=== PATIENT | female | born 1955 | race Two or more races ===

== ENCOUNTER 2017-04-27 12:34 | Day surgery (SDC) | payer OTHER ==
[2017-04-27 13:21] VITALS: BP 118/69; PULSE 61; RESP 20; O2SAT 99
[2017-04-27] MEDS ORDERED: GLIP10TA6 PO (13:29)
[2017-04-27] MEDS ORDERED: GABA300C5 PO (13:29)
[2017-04-27] MEDS ORDERED: NOVOLOGP2 SQ (13:29)
[2017-04-27] MEDS ORDERED: NOVOLOGSS (13:29)
[2017-04-27] MEDS ORDERED: HYDR12.57 PO (13:29)
[2017-04-27] MEDS ORDERED: METF1000 PO (13:29)
[2017-04-27] MEDS ORDERED: LISI-515 PO (13:29)
[2017-04-27] MEDS ORDERED: ACET300T49 PO (13:29)
--- NOTE | 2017-04-27 15:24 | RADRPT ---
EXAM DATE/TIME: 04/27/2017 14:12 [facility] COMPARISON: No previous studies available for comparison. INDICATIONS : Patient presents with ear infection in need of PICC for antibiotics. MEDICAL HISTORY : Malignant Otitis externa right ear DM High cholesterol HTN Hearing loss SURGICAL HISTORY : RT ear surgery C Section ENCOUNTER: Initial ACUITY: 3 weeks PAIN SCORE: 0/10 FLUORO TIME: .23 minutes IMAGE SERIES: 1 ACCESS: Right basilic vein DEVICE(S): 1.) 4 Hebrew single lumen 35 cm Power PICC PROCEDURE : 1. Ultrasound guidance for venous catheterization. 2. Fluoroscopic guidance. 3. Ultrasound & fluoroscopic guided central venous Power PICC line placement. The risks, benefits and alternatives to the procedure were explained and verbal and written consent w as obtained. The site was prepped in sterile fashion. Full sterile technique was used, including ca p, mask, sterile gloves and gown and a large sterile sheet. Hand hygiene and 2% chlorhexidine prep w as utilized per protocol for cutaneous antisepsis with appropriate dry time for site. Sterile gel a nd sterile probe cover were utilized for ultrasound guidance. The skin and subcutaneous tissues wer e infiltrated with local anesthetic solution. Under direct ultrasound guidance, a suitable vein was accessed and a measuring guidewire was introduc ed and positioned in the central venous system. The ultrasound images depicting access guidance were saved and stored to PACS for permanent record. A Power Injectable PICC line was cut to prescribed length and introduced, positioned with tip at the cavoatrial junction level. The line was flushed and secured per protocol. CONCLUSION: 1. Uncomplicated central venous Power PICC line placement. 2. The PICC line can be used immediately. Robe Auguste MD on April 27, 2017 at 15:21 Board Certified Radiologist. This report was verified electronically.
== END 2017-04-27 14:30 | disposition home or self-care (01) ==
LOC: HROP 12:34 → HRIP 12:35 → HROP 14:30
PROVIDERS: ATTEND Internal Medicine
DX: H60.21 Malignant otitis externa, right ear (principal); E11.9 Type 2 diabetes mellitus without complications; E78.00 Pure hypercholesterolemia, unspecified; I10 Essential (primary) hypertension; Z79.4 Long term (current) use of insulin
CPT/HCPCS: 36569; 76937; 77001; C1751; J1642

== ENCOUNTER 2017-05-08 18:31 | Inpatient (IN) | payer OTHER ==
[~2017-05-08] VITALS: Ht 149.9 cm; Wt 79.5 kg
[~2017-05-08 18:31] MED LIST: ACET300T49 PO; GABA300C5 PO; GLIP10TA6 PO; HYDR12.57 PO; LISI-515 PO; METF1000 PO; NOVOLOGP2 SQ; NOVOLOGSS
[2017-05-08 18:42] VITALS: BP 149/72; PULSE 92; RESP 20; TEMP 98.4; O2SAT 98
[2017-05-08 20:50] LABS: AUTOMATED NEUTROPHIL # 8.1 TH/MM3 (1.8-7.7); BASOPHIL # 0.1 TH/MM3 (0-0.2); BASOPHIL % 0.7 % (0.0-2.0); EOSINOPHIL # 0.1 TH/MM3 (0-0.4); EOSINOPHIL % 0.4 % (0.0-4.0); HEMATOCRIT 34.5 % (35.0-46.0); HEMOGLOBIN 11.9 GM/DL (11.6-15.3); LYMPH % 34.1 % (9.0-44.0); LYMPHOCYTE # 4.9 TH/MM3 (1.0-4.8); MEAN CELL VOLUME 89.7 FL (80.0-100.0); MEAN CORPUSCULAR HEMOGLOBIN 30.8 PG (27.0-34.0); MEAN CORPUSCULAR HGB CONC 34.4 % (32.0-36.0); MEAN PLATELET VOLUME 7.7 FL (7.0-11.0); MONO % 8.2 % (0.0-8.0); MONOCYTE # 1.2 TH/MM3 (0-0.9); NEUT % 56.6 % (16.0-70.0); PLATELET COUNT 410 TH/MM3 (150-450); RED BLOOD COUNT 3.85 MIL/MM3 (4.00-5.30); RED CELL DISTRIBUTION WIDTH 12.7 % (11.6-17.2); WHITE BLOOD COUNT 14.4 TH/MM3 (4.0-11.0)
[2017-05-08 21:08] LABS: INTERNATIONAL NORMALIZED RATIO 1.1 RATIO; PROTHROMBIN TIME - PATIENT 10.7 SEC (9.8-11.6)
[2017-05-08 21:10] LABS: ALBUMIN 2.8 GM/DL (3.4-5.0); AST (GOT) 9 U/L (15-37); BICARBONATE 25.4 MEQ/L (21.0-32.0); BLOOD UREA NITROGEN 17 MG/DL (7-18); CALCIUM 9.4 MG/DL (8.5-10.1); CHLORIDE 99 MEQ/L (98-107); CREATININE 0.67 MG/DL (0.50-1.00); GLOMERULAR FILTRATION RATE 90 ML/MIN (>89); GLUCOSE,RANDOM 210 MG/DL (74-106); SODIUM (NA) 133 MEQ/L (136-145)
[2017-05-08 21:11] LABS: ALT (GPT) 13 U/L (10-53)
[2017-05-08 21:14] LABS: ALKALINE PHOSPHATASE 102 U/L (45-117); TOTAL BILIRUBIN ADULT 0.4 MG/DL (0.2-1.0); TOTAL PROTEIN 8.6 GM/DL (6.4-8.2)
[2017-05-08 21:33] VITALS: BP 140/66; PULSE 83; RESP 18; TEMP 98.5; O2SAT 100
[2017-05-08] MEDS ORDERED: CIPR500T2 PO (21:41)
[2017-05-08] MEDS ORDERED: Insulin SQ (21:41)
--- NOTE | 2017-05-08 21:49 | PD ---
HPI Chief Complaint: Skin Problem Time Seen by Provider: 21:29 Travel History International Travel<30 days: No Contact w/Intl Traveler<30days: No Traveled to known affect area: No History of Present Illness HPI This is a 61-year-old Yemeni-speaking with history of diabetes, hypertension, hyperlipidemia, who presents with family member for evaluation of right ear infection. Initially she started having pain in her right ear 2 months ago. She was referred by her primary care physician, Dr. Chacon in [place], to an vp purchasing in [facility]. she was referred to infectious disease specialist in [place], Dr. Juan Pablo Willis, for further treatment of her infection. She had a PICC line placed 1.5 weeks ago and reportedly cefepime 2 g bid for 3 weeks were ordered to be administered at home through the PICC line. Unfortunately no nurses have come to her home for administration of the antibiotics secondary to insurance issues and she called Dr. Lopez office today and was referred here for further evaluation and treatment of this issue. She denies fevers, cough, congestion, sore throat, nausea, vomiting, abdominal pain. She has had bilateral lower extremity edema for the past few days as well which is somewhat painful when walking. No history of CHF. No other complaints at this time. [facility] Past Medical History Diminished Hearing: No Tetanus Vaccination: Unknown Influenza Vaccination: No Past Surgical History Other Surgery: Yes (R ear surgery x 2 week ago) Social History Alcohol Use: No Tobacco Use: No Substance Use: No Allergies-Medications (Allergen,Severity, Reaction): Coded Allergies: No Known Allergies (Unverified , 04/27/17) Reported Meds & Prescriptions Reported Meds & Active Scripts Active Reported [Insulin] 5 Units SQ HS Ciprofloxacin (Ciprofloxacin HCl) 500 Mg Tab 500 Mg PO DAILY Metformin (Metformin HCl) 1,000 Mg Tab 1,000 Mg PO DAILY With a meal Lisinopril 20 Mg Tab 20 Mg PO DAILY Hydrochlorothiazide 12.5 Mg Cap 12.5 Mg PO DAILY Glipizide 10 Mg Tab 10 Mg PO DAILY Take 30 minutes before a meal Review of Systems Except as stated in HPI: all other systems reviewed are Neg Physical Exam Narrative GENERAL: Well-developed well-nourished female no acute distress SKIN: Warm and dry. HEAD: Atraumatic. Normocephalic. EYES: Pupils equal and round. No scleral icterus. No injection or drainage. ENT: No nasal bleeding or discharge. Mucous membranes pink and moist. The right external ear canal is edematous with foul-smelling purulent drainage. Tenderness to palpation to the right external ear. NECK: Trachea midline. No JVD. CARDIOVASCULAR: Regular rate and rhythm. No murmur appreciated. RESPIRATORY: No accessory muscle use. Clear to auscultation. Breath sounds equal bilaterally. GASTROINTESTINAL: Abdomen soft, non-tender, nondistended. Hepatic and splenic margins not palpable. MUSCULOSKELETAL: No obvious deformities. There is 1+ lower extremity tibial/ pedal edema bilaterally. There are no erythematous changes. Distal pulses are intact. NEUROLOGICAL: Awake and alert. No obvious cranial nerve deficits. Motor grossly within normal limits. Normal speech. Data Data Last Documented VS Vital Signs Date Time Temp Pulse Resp B/P (MAP) Pulse Ox O2 Delivery O2 Flow Rate FiO2 05/08/17 21:33 98.5 83 18 140/66 (90) 100 Room Air Orders Orders Complete Blood Count With Diff (05/08/17 18:46) Comprehensive Metabolic Panel (05/08/17 18:46) Prothrombin Time / Inr (Pt) (05/08/17 18:46) Act Partial Throm Time (Ptt) (05/08/17 18:46) Lactic Acid Sepsis Protocol (05/08/17 18:46) Us Leg Venous Doppler Bilat (05/08/17 21:40) Wound Culture And Gram Stain (05/08/17 21:41) Cefepime Inj (Maxipime Inj) (05/08/17 22:30) Admit Order (Ed Use Only) (05/08/17 23:08) Labs Laboratory Tests Test 05/08/17 20:15 05/08/17 20:17 Lactic Acid Level 0.9 mmol/L White Blood Count 14.4 TH/MM3 Red Blood Count 3.85 MIL/MM3 Hemoglobin 11.9 GM/DL Hematocrit 34.5 % Mean Corpuscular Volume 89.7 FL Mean Corpuscular Hemoglobin 30.8 PG Mean Corpuscular Hemoglobin Concent 34.4 % Red Cell Distribution Width 12.7 % Platelet Count 410 TH/MM3 Mean Platelet Volume 7.7 FL Neutrophils (%) (Auto) 56.6 % Lymphocytes (%) (Auto) 34.1 % Monocytes (%) (Auto) 8.2 % Eosinophils (%) (Auto) 0.4 % Basophils (%) (Auto) 0.7 % Neutrophils # (Auto) 8.1 TH/MM3 Lymphocytes # (Auto) 4.9 TH/MM3 Monocytes # (Auto) 1.2 TH/MM3 Eosinophils # (Auto) 0.1 TH/MM3 Basophils # (Auto) 0.1 TH/MM3 CBC Comment DIFF FINAL Differential Comment Prothrombin Time 10.7 SEC Prothromb Time International Ratio 1.1 RATIO Activated Partial Thromboplast Time 26.9 SEC Blood Urea Nitrogen 17 MG/DL Creatinine 0.67 MG/DL Random Glucose 210 MG/DL Total Protein 8.6 GM/DL Albumin 2.8 GM/DL Calcium Level 9.4 MG/DL Alkaline Phosphatase 102 U/L Aspartate Amino Transf (AST/SGOT) 9 U/L Alanine Aminotransferase (ALT/SGPT) 13 U/L Total Bilirubin 0.4 MG/DL Sodium Level 133 MEQ/L Potassium Level 4.1 MEQ/L Chloride Level 99 MEQ/L Carbon Dioxide Level 25.4 MEQ/L Anion Gap 9 MEQ/L Estimat Glomerular Filtration Rate 90 ML/MIN MDM Medical Decision Making Medical Screen Exam Complete: Yes Emergency Medical Condition: Yes Medical Record Reviewed: Yes Differential Diagnosis Malignant otitis externa, medication nonadministration, osteomyelitis, mastoiditis Narrative Course 61-year-old female presents after being unable to obtain outpatient IV antibiotic therapy through a recently placed PICC line for treatment of a right ear infection. Examination is concerning for malignant otitis externa. The patient be given IV cefepime. Lab work was obtained in triage revealing WBC count of 14.4, glucose 210, sodium 133. A culture was obtained from the ear. A page was placed for the patient's infectious disease specialist Dr. Willis. Several pages were made to the patient's infectious disease specialist with no callback. At this point time the plan will be to admit her for IV antibiotic therapy. Diagnosis Primary Impression: Malignant otitis externa Additional Impression: Leukocytosis Admitting Information Admitting Physician Requests: it Natanael Britton May 08, 2017 21:49
--- NOTE | 2017-05-08 22:13 | RADRPT ---
EXAM DATE/TIME: 05/08/2017 21:47 [facility] COMPARISON: No previous studies available for comparison. INDICATIONS : Bilateral leg swelling. MEDICAL HISTORY : Leg swelling. SURGICAL HISTORY : Right ear surgery. ENCOUNTER: Initial ACUITY: 2 day PAIN SCORE: 3/10 LOCATION: Bilateral legs. TECHNIQUE: Venous ultrasound of the left and right leg was performed from the inguinal ligament to the proximal calf. Real-time, color Doppler and spectral tracing, compression and augmentation techniques were us ed. FINDINGS: RIGHT LEG: There is normal compressibility of the deep venous system from the inguinal region to the proximal ca lf. No echogenic clot is seen in the lumen of the common femoral, femoral, popliteal, and posterior tibial veins. There is a normal response of the venous system to proximal and distal augmentation an d respiration. LEFT LEG: There is normal compressibility of the deep venous system from the inguinal region to the proximal ca lf. No echogenic clot is seen in the lumen of the common femoral, femoral, popliteal, and posterior tibial veins. There is a normal response of the venous system to proximal and distal augmentation an d respiration. CONCLUSION: Normal examination. Fabian Rosario MD on May 08, 2017 at 22:11 Board Certified Radiologist. This report was verified electronically.
[2017-05-08] MEDS ORDERED: CEFEPIME INJ 2,000 MG in SODIUM CHLORIDE 0.9% INJ 100 ML IV ONE (22:30)
[2017-05-08 23:41] VITALS: BP 147/68; PULSE 78; RESP 16; TEMP 98.7; O2SAT 98
[2017-05-08] MEDS ORDERED: BISACODYL 10 MG SUPP RECTAL PRN (23:45)
[2017-05-08] MEDS ORDERED: DEXTROSE 50% IN WATER 50 ML VIAL(D50) IV PUSH PRN (23:45)
[2017-05-08] MEDS ORDERED: GLUCAGON 1 MG/ML VIAL OTHER PRN (23:45)
[2017-05-08] MEDS ORDERED: ACETAMINOPHEN 325 MG TAB PO PRN (23:45)
[2017-05-08] MEDS ORDERED: ONDANSETRON HCL 4 MG/2 ML VIAL IVP PRN (23:45)
[2017-05-08] MEDS ORDERED: MAGNESIUM HYDROXIDE SUSP 30 ML CUP PO PRN (23:45)
[2017-05-08] MEDS ORDERED: SENNOSIDES 8.6 MG TAB PO PRN (23:45)
[2017-05-08] MEDS ORDERED: NALOXONE HCL 0.4 MG/ML AMP IV PUSH PRN (23:45)
[2017-05-08] MEDS ORDERED: LACTULOSE SYRUP 20 GM/30 ML CUP PO PRN (23:45)
[2017-05-08] MEDS ORDERED: SODIUM CHLORIDE 0.9% FLUSH 10 ML FLUSH IV FLUSH PRN (23:45)
[2017-05-09] VITALS (7 sets, daily range): BP systolic 112–144; BP diastolic 5–91; PULSE 61–92; RESP 16–20; TEMP 97.6–99.2; O2SAT 95–100
[2017-05-09] MEDS: HEPARIN SODIUM - SQ 10,000 UNITS/ML VIAL SQ SCH ×4 (01:11→23:33)
--- NOTE | 2017-05-09 04:47 | HHI.HP ---
HPI Service [facility] Primary Care Physician Unknown Admission Diagnosis Malignant otitis externa, leukocytosis Diagnoses: Travel History International Travel<30 Days: No Contact w/Intl Traveler <30 Da: No Traveled to Known Affected Are: No History of Present Illness 61-year-old Samoan-speaking female with a past medical history of diabetes, hypertension, hyperlipidemia who presents to the emergency department for evaluation of an ear infection. The patient initially started having right ear pain 2 months ago. She was referred by her primary care physician to an ENT physician who then referred her to infectious disease. She had a PICC line placed approximately 9 days ago and was reportedly prescribed cefepime 2 g twice a day for 3 weeks which was to be ordered for home administration through the PICC line. Unfortunately the patient has not received any medication at her home secondary to insurance issues. The patient denies any fever/chills. No nausea/vomiting/abdominal pain. No chest pain or shortness of breath. She has bilateral lower extremity edema for the past few days which is somewhat more painful when walking. She has no history of congestive heart failure. Review of Systems Except as stated in HPI: all other systems reviewed are Neg Past Family Social History Past Medical History Diabetes Hypertension Hyperlipidemia Past Surgical History Right ear surgery approximately 2 weeks ago Reported Medications Reported Meds & Active Scripts Active Reported [Insulin] 5 Units SQ HS Ciprofloxacin (Ciprofloxacin HCl) 500 Mg Tab 500 Mg PO DAILY Metformin (Metformin HCl) 1,000 Mg Tab 1,000 Mg PO DAILY With a meal Lisinopril 20 Mg Tab 20 Mg PO DAILY Hydrochlorothiazide 12.5 Mg Cap 12.5 Mg PO DAILY Glipizide 10 Mg Tab 10 Mg PO DAILY Take 30 minutes before a meal Allergies: Coded Allergies: No Known Allergies (Unverified , 04/27/17) Family History Negative for CAD/DM Social History Denies alcohol, tobacco and illicit drugs Physical Exam Vital Signs Vital Signs Date Time Temp Pulse Resp B/P (MAP) Pulse Ox O2 Delivery O2 Flow Rate FiO2 05/09/17 01:31 99.2 83 16 144/71 (95) 95 05/09/17 01:30 83 05/08/17 23:41 98.7 78 16 147/68 (94) 98 Room Air 05/08/17 21:33 98.5 83 18 140/66 (90) 100 Room Air 05/08/17 18:42 98.4 92 20 149/72 (97) 98 Physical Exam GENERAL: female lying in bed SKIN: No rashes, ecchymoses or lesions. Cool and dry. HEAD: Atraumatic. Normocephalic. No temporal or scalp tenderness. EYES: Pupils equal round and reactive. Extraocular motions intact. No scleral icterus. No injection or drainage. ENT: Nose without bleeding, purulent drainage or septal hematoma. Throat without erythema, tonsillar hypertrophy or exudate. Uvula midline. Airway patent. Right ear swollen, erythematous and edematous with copious quantities of foul-smelling purulent drainage. NECK: Trachea midline. No JVD or lymphadenopathy. Supple, nontender, no meningeal signs. CARDIOVASCULAR: Regular rate and rhythm without murmurs, gallops, or rubs. RESPIRATORY: Clear to auscultation. Breath sounds equal bilaterally. No wheezes , rales, or rhonchi. GASTROINTESTINAL: Abdomen soft, non-tender, nondistended. No hepato-splenomegaly , or palpable masses. No guarding. MUSCULOSKELETAL: He is pedal edema bilaterally NEUROLOGICAL: Awake and alert. Cranial nerves II through XII intact. Motor and sensory grossly within normal limits. Normal speech. Laboratory Laboratory Tests Test 05/08/17 20:15 05/08/17 20:17 Lactic Acid Level 0.9 White Blood Count 14.4 Red Blood Count 3.85 Hemoglobin 11.9 Hematocrit 34.5 Mean Corpuscular Volume 89.7 Mean Corpuscular Hemoglobin 30.8 Mean Corpuscular Hemoglobin Concent 34.4 Red Cell Distribution Width 12.7 Platelet Count 410 Mean Platelet Volume 7.7 Neutrophils (%) (Auto) 56.6 Lymphocytes (%) (Auto) 34.1 Monocytes (%) (Auto) 8.2 Eosinophils (%) (Auto) 0.4 Basophils (%) (Auto) 0.7 Neutrophils # (Auto) 8.1 Lymphocytes # (Auto) 4.9 Monocytes # (Auto) 1.2 Eosinophils # (Auto) 0.1 Basophils # (Auto) 0.1 CBC Comment DIFF FINAL Differential Comment Prothrombin Time 10.7 Prothromb Time International Ratio 1.1 Activated Partial Thromboplast Time 26.9 Blood Urea Nitrogen 17 Creatinine 0.67 Random Glucose 210 Total Protein 8.6 Albumin 2.8 Calcium Level 9.4 Alkaline Phosphatase 102 Aspartate Amino Transf (AST/SGOT) 9 Alanine Aminotransferase (ALT/SGPT) 13 Total Bilirubin 0.4 Sodium Level 133 Potassium Level 4.1 Chloride Level 99 Carbon Dioxide Level 25.4 Anion Gap 9 Estimat Glomerular Filtration Rate 90 Date/Time Source Procedure Growth Status 05/08/17 21:50 Wound Face Gram Stain Pending Received 05/08/17 21:50 Wound Face Wound Culture Pending Received Result Diagram: 05/08/17201605/08/172016 Caprini VTE Risk Assessment Caprini VTE Risk Assessment: Mod/High Risk (score >= 2) Caprini Risk Assessment Model Point Value = 1 Point Value = 2 Point Value = 3 Point Value = 5 Age 41-60 Minor surgery BMI > 25 kg/m2 Swollen legs Varicose veins or History of unexplained or recurrent spontaneous Oral contraceptives or hormone replacement Sepsis (< 1 month) Serious lung disease, including pneumonia (< 1 month) Abnormal pulmonary function Acute myocardial infarction Congestive heart failure (< 1 month) History of inflammatory bowel disease Medical patient at bed rest Age 61-74 Arthroscopic surgery Major open surgery (> 45 min) Laparoscopic surgery (> 45 min) Malignancy Confined to bed (> 72 hours) Immobilizing plaster cast Central venous access Age >= 75 History of VTE Family history of VTE Factor V Leiden Prothrombin [id number] Lupus anticoagulant Anticardiolipin antibodies Elevated serum homocysteine Heparin-induced thrombocytopenia Other congenital or acquired thrombophilia Stroke (< 1 month) Elective arthroplasty Hip, pelvis, or leg fracture Acute spinal cord injury (< 1 month) Prophylaxis Regimen Total Risk Factor Score Risk Level Prophylaxis Regimen 0-1 Low Early ambulation 2 Moderate Order ONE of the following: *Sequential Compression Device (SCD) *Heparin 5000 units SQ BID 3-4 Higher Order ONE of the following medications: *Heparin 5000 units SQ TID *Enoxaparin/Lovenox 40 mg SQ daily (WT < 150 kg, CrCl > 30 mL/min) *Enoxaparin/Lovenox 30 mg SQ daily (WT < 150 kg, CrCl > 10-29 mL/min) *Enoxaparin/Lovenox 30 mg SQ BID (WT < 150 kg, CrCl > 30 mL/min) AND/OR *Sequential Compression Device (SCD) 5 or more Highest Order ONE of the following medications: *Heparin 5000 units SQ TID (Preferred with Epidurals) *Enoxaparin/Lovenox 40 mg SQ daily (WT < 150 kg, CrCl > 30 mL/min) *Enoxaparin/Lovenox 30 mg SQ daily (WT < 150 kg, CrCl > 10-29 mL/min) *Enoxaparin/Lovenox 30 mg SQ BID (WT < 150 kg, CrCl > 30 mL/min) AND *Sequential Compression Device (SCD) Assessment and Plan Assessment and Plan Assessment/plan: 1. Malignant otitis externa Patient with leukocytosis and tachycardia Wound culture pending Cefepime 2 g twice a day Infectious disease consulted, appreciate recommendations 2. Diabetes mellitus Sliding scale insulin Monitor blood glucose 3. Hypertension/hyperlipidemia Continue home medications FEN Diabetic diet Electrolytes: Monitor and replete when necessary Heparin Physician Certification 2 Midnight Certification Type: Admission for Inpatient Services Order for Inpatient Services The services are ordered in accordance with Medicare regulations or non- Medicare payer requirements, as applicable. In the case of services not specified as inpatient-only, they are appropriately provided as inpatient services in accordance with the 2-midnight benchmark. Estimated LOS (days): 2 2 days is the estimated time the patient will need to remain in the hospital, assuming treatment plan goals are met and no additional complications. Post-Hospital Plan: Not yet determined Nissa Mercado MD May 09, 2017 04:47
[2017-05-09] MEDS ORDERED: SODIUM CHLORIDE 0.9% FLUSH 10 ML FLUSH IV FLUSH SCH (09:00)
[2017-05-09] MEDS ORDERED: DOCUSATE SODIUM 50 MG/SENNA 8.6 MG TAB PO SCH (09:00)
[2017-05-09] MEDS: LISINOPRIL 20 MG TAB PO SCH (09:51)
[2017-05-09] MEDS: HYDROCHLOROTHIAZIDE 12.5 MG CAP PO SCH (09:51)
[2017-05-09] MEDS: INSULIN ASPART SUPPLEMENTAL SCALE SQ SCH ×4 (09:54→21:59)
[2017-05-09] MEDS ORDERED: CEFEPIME INJ 2,000 MG in SODIUM CHLORIDE 0.9% INJ 100 ML IV SCH (10:30)
[2017-05-09 11:55] LABS: AUTOMATED NEUTROPHIL # 6.1 TH/MM3 (1.8-7.7); BASOPHIL % 0.4 % (0.0-2.0); EOSINOPHIL % 0.3 % (0.0-4.0); HEMATOCRIT 32.9 % (35.0-46.0); HEMOGLOBIN 11.3 GM/DL (11.6-15.3); LYMPH % 29.2 % (9.0-44.0); LYMPHOCYTE # 2.9 TH/MM3 (1.0-4.8); MEAN CELL VOLUME 89.5 FL (80.0-100.0); MEAN CORPUSCULAR HEMOGLOBIN 30.9 PG (27.0-34.0); MEAN CORPUSCULAR HGB CONC 34.5 % (32.0-36.0); MEAN PLATELET VOLUME 7.6 FL (7.0-11.0); MONO % 8.6 % (0.0-8.0); MONOCYTE # 0.9 TH/MM3 (0-0.9); NEUT % 61.5 % (16.0-70.0); PLATELET COUNT 380 TH/MM3 (150-450); RED BLOOD COUNT 3.67 MIL/MM3 (4.00-5.30); RED CELL DISTRIBUTION WIDTH 12.4 % (11.6-17.2); WHITE BLOOD COUNT 9.9 TH/MM3 (4.0-11.0)
[2017-05-09 12:19] LABS: BICARBONATE 25.2 MEQ/L (21.0-32.0); CALCIUM 9.1 MG/DL (8.5-10.1); CREATININE 0.69 MG/DL (0.50-1.00)
--- NOTE | 2017-05-09 13:22 | HHI.PR ---
Subjective Remarks 61-year-old Uzbek-speaking female with a past medical history of diabetes, hypertension, hyperlipidemia who presents to the emergency department for evaluation of an ear infection. The patient initially started having right ear pain 2 months ago. She was referred by her primary care physician to an ENT physician who then referred her to infectious disease. She had a PICC line placed approximately 9 days ago and was reportedly prescribed cefepime 2 g twice a day for 3 weeks which was to be ordered for home administration through the PICC line. Unfortunately the patient has not received any medication at her home secondary to insurance issues. The patient denies any fever/chills. No nausea/vomiting/abdominal pain. No chest pain or shortness of breath. She has bilateral lower extremity edema for the past few days which is somewhat more painful when walking. She has no history of congestive heart failure. 4-4 HAD DIFFICULTY GETTING ANTIBIOTICS SET UP STILL HAS RIGHT EAR ISSUES CONSULT CASE MANAGEMENT COMPLAINS OF PAIN IN EAR AND KNEE DW RN AND PT AND CASE MANAGEMENT Objective Vitals Vital Signs Date Time Temp Pulse Resp B/P (MAP) Pulse Ox O2 Delivery O2 Flow Rate FiO2 05/09/17 08:00 98.6 92 20 112/91 (98) 100 05/09/17 04:00 98.4 73 16 127/75 (92) 96 05/09/17 01:31 99.2 83 16 144/71 (95) 95 05/09/17 01:30 83 05/08/17 23:41 98.7 78 16 147/68 (94) 98 Room Air 05/08/17 21:33 98.5 83 18 140/66 (90) 100 Room Air 05/08/17 18:42 98.4 92 20 149/72 (97) 98 I/O 05/08/17 05/08/17 05/08/17 05/09/17 05/09/17 05/09/17 07:00 15:00 23:00 07:00 15:00 23:00 Intake Total 340 ml 100 ml Balance 340 ml 100 ml Intake Oral 240 ml IV Total 100 ml 100 ml # Voids 1 Result Diagram: 05/09/17 1118 05/09/17 1118 Other Results Laboratory Tests Test 05/08/17 20:15 05/08/17 20:17 05/09/17 11:18 Lactic Acid Level 0.9 mmol/L White Blood Count 14.4 TH/MM3 9.9 TH/MM3 Red Blood Count 3.85 MIL/MM3 3.67 MIL/MM3 Hemoglobin 11.9 GM/DL 11.3 GM/DL Hematocrit 34.5 % 32.9 % Mean Corpuscular Volume 89.7 FL 89.5 FL Mean Corpuscular Hemoglobin 30.8 PG 30.9 PG Mean Corpuscular Hemoglobin Concent 34.4 % 34.5 % Red Cell Distribution Width 12.7 % 12.4 % Platelet Count 410 TH/MM3 380 TH/MM3 Mean Platelet Volume 7.7 FL 7.6 FL Neutrophils (%) (Auto) 56.6 % 61.5 % Lymphocytes (%) (Auto) 34.1 % 29.2 % Monocytes (%) (Auto) 8.2 % 8.6 % Eosinophils (%) (Auto) 0.4 % 0.3 % Basophils (%) (Auto) 0.7 % 0.4 % Neutrophils # (Auto) 8.1 TH/MM3 6.1 TH/MM3 Lymphocytes # (Auto) 4.9 TH/MM3 2.9 TH/MM3 Monocytes # (Auto) 1.2 TH/MM3 0.9 TH/MM3 Eosinophils # (Auto) 0.1 TH/MM3 0.0 TH/MM3 Basophils # (Auto) 0.1 TH/MM3 0.0 TH/MM3 CBC Comment DIFF FINAL DIFF FINAL Differential Comment Prothrombin Time 10.7 SEC Prothromb Time International Ratio 1.1 RATIO Activated Partial Thromboplast Time 26.9 SEC Blood Urea Nitrogen 17 MG/DL 14 MG/DL Creatinine 0.67 MG/DL 0.69 MG/DL Random Glucose 210 MG/DL 280 MG/DL Total Protein 8.6 GM/DL Albumin 2.8 GM/DL Calcium Level 9.4 MG/DL 9.1 MG/DL Alkaline Phosphatase 102 U/L Aspartate Amino Transf (AST/SGOT) 9 U/L Alanine Aminotransferase (ALT/SGPT) 13 U/L Total Bilirubin 0.4 MG/DL Sodium Level 133 MEQ/L 133 MEQ/L Potassium Level 4.1 MEQ/L 4.0 MEQ/L Chloride Level 99 MEQ/L 102 MEQ/L Carbon Dioxide Level 25.4 MEQ/L 25.2 MEQ/L Anion Gap 9 MEQ/L 6 MEQ/L Estimat Glomerular Filtration Rate 90 ML/MIN 87 ML/MIN Imaging Last Impressions Lower Extremity Ultrasound 05/08/172139 Signed Impressions: Service Date/Time: Monday, May 08, 2017 21:47 - CONCLUSION: Normal examination. Fabian Rosario MD Objective Remarks GENERAL: SKIN: Warm and dry. HEAD: Atraumatic. Normocephalic. EYES: Pupils equal and round. No scleral icterus. No injection or drainage. ENT: No nasal bleeding or discharge. Mucous membranes pink and moist. NECK: Trachea midline. No JVD. CARDIOVASCULAR: Regular rate and rhythm. RESPIRATORY: No accessory muscle use. Clear to auscultation. Breath sounds equal bilaterally. GASTROINTESTINAL: Abdomen soft, non-tender, nondistended. Hepatic and splenic margins not palpable. MUSCULOSKELETAL: Extremities without clubbing, cyanosis, or edema. No obvious deformities. NEUROLOGICAL: Awake and alert. No obvious cranial nerve deficits. Motor grossly within normal limits. Five out of 5 muscle strength in the arms and legs. Normal speech. PSYCHIATRIC: Appropriate mood and affect; insight and judgment normal. Procedures NONE Medications and IVs Current Medications Cefepime HCl 2000 mg/Sodium Chloride 100 ml @ 200 mls/hr ONCE ONCE IV Last administered on 05/08/17at 22:56; Start 05/08/17 at 22:30; Stop 05/08/17 at 22:59; Status DC Cefepime HCl 2000 mg/Sodium Chloride 100 ml @ 200 mls/hr Q12H IV Last administered on 05/09/17at 11:36; Start 05/09/17 at 10:30 Sodium Chloride (NS Flush) 2 ml UNSCH PRN IV FLUSH FLUSH AFTER USING IV ACCESS ; Start 05/08/17 at 23:45 Sodium Chloride (NS Flush) 2 ml BID IV FLUSH Last administered on 05/09/17at 09: 54; Start 05/09/17 at 09:00 Acetaminophen (Tylenol) 650 mg Q4H PRN PO TEMP > 100.4 Last administered on 05/09at 09:53; Start 05/08/17 at 23:45 Ondansetron HCl (Zofran Inj) 4 mg Q6H PRN IVP NAUSEA OR VOMITING; Start at 23:45 Heparin Sodium (Porcine) (Heparin Inj) 5,000 units Q8H SQ Last administered on 05/09/17at 09:53; Start 05/08/17 at 23:45 Naloxone HCl (Narcan Inj) 0.4 mg UNSCH PRN IV PUSH SEE LABEL COMMENTS; Start at 23:45 Senna/Docusate Sodium (Ayala-Colace) 1 tab BID PO Last administered on 05/09/17at 09:51; Start 05/09/17 at 09:00 Magnesium Hydroxide (Milk Of Magnesia Liq) 30 ml Q12H PRN PO Mild constipation ; Start 05/08/17 at 23:45 Sennosides (Senokot) 17.2 mg Q12H PRN PO Moderate constipation; Start 05/08/17 at 23:45 Bisacodyl (Dulcolax Supp) 10 mg DAILY PRN RECTAL SEVERE CONSITIPATION/ IF NPO ; Start 05/08/17 at 23:45 Lactulose (Lactulose Liq) 30 ml DAILY PRN PO SEVERE CONSITIPATION/ IF PO; Start 05/08/17 at 23:45 Hydrochlorothiazide (Microzide) 12.5 mg DAILY PO Last administered on 05/09/17at 09:51; Start 05/09/17 at 09:00 Lisinopril (Prinivil) 20 mg DAILY PO Last administered on 05/09/17at 09:51; Start 05/09/17 at 09:00 Dextrose (D50w (Vial) Inj) 50 ml UNSCH PRN IV PUSH HYPOGLYCEMIA-SEE COMMENTS; Start 05/08/17 at 23:45 Glucagon (Glucagon Inj) 1 mg UNSCH PRN OTHER HYPOGLYCEMIA-SEE COMMENTS; Start 05/08/17 at 23:45 Insulin Aspart (NovoLOG SUPPLEMENTAL SCALE) 1 ACHS SLIDING SCALE SQ Last administered on 05/09/17at 13:00; Start 05/09/17 at 08:00 A/P Assessment and Plan 1. Malignant otitis externa Patient with leukocytosis and tachycardia Wound culture pending Cefepime 2 g twice a day Infectious disease consulted, appreciate recommendations 2. Diabetes mellitus Sliding scale insulin Monitor blood glucose 3. Hypertension/hyperlipidemia Continue home medications OSTEOARTHRITIS- PAIN CONTROL FEN Diabetic diet Electrolytes: Monitor and replete when necessary Heparin Discharge Planning PENDING IMPROVEMENT Mode Corcoran DO May 09, 2017 13:22
[2017-05-09] MEDS ORDERED: MORPHINE SULFATE 4 MG/ML INJ IV PUSH PRN ×2 (13:30)
[2017-05-09] MEDS ORDERED: LACTULOSE SYRUP 20 GM/30 ML CUP PO PRN (13:30)
[2017-05-09] MEDS ORDERED: SODIUM CHLORIDE 0.9% FLUSH 10 ML FLUSH IV FLUSH PRN (13:30)
[2017-05-09] MEDS ORDERED: BISACODYL 10 MG SUPP RECTAL PRN (13:30)
[2017-05-09] MEDS ORDERED: SENNOSIDES 8.6 MG TAB PO PRN (13:30)
[2017-05-09] MEDS ORDERED: TEMAZEPAM 15 MG CAP PO PRN (13:30)
[2017-05-09] MEDS ORDERED: ONDANSETRON HCL 4 MG/2 ML VIAL IVP PRN (13:30)
[2017-05-09] MEDS ORDERED: NALOXONE HCL 0.4 MG/ML AMP IV PUSH PRN (13:30)
[2017-05-09] MEDS ORDERED: ACETAMINOPHEN 325 MG TAB PO PRN (13:30)
[2017-05-09] MEDS ORDERED: oxyCODONE/ACETAMINOPHEN 5 MG/325 MG TAB PO PRN (13:30)
[2017-05-09] MEDS ORDERED: MAGNESIUM HYDROXIDE SUSP 30 ML CUP PO PRN (13:30)
[2017-05-09] MEDS ORDERED: METOCLOPRAMIDE HCL 10 MG/2 ML VIAL IV PUSH PRN (13:30)
[2017-05-09] MEDS ORDERED: MORPHINE SULFATE 2 MG/ML SYRINGE IV PUSH PRN (13:30)
--- NOTE | 2017-05-09 16:58 | PD.ID.CON ---
History of Present Illness Service Infectious disease Consult Requested By Dr. Mercado, Hospitalist Reason for Consult Malignant otitis externa Primary Care Physician Unknown Diagnoses: History of Present Illness Patient seen and examined with Dr. Saldivar This is a 61-year-old Syrian-speaking female with a past medical history of diabetes, hypertension, hyperlipidemia who presents to the emergency department for evaluation of an ear infection. The patient initially started having right ear pain 3 months ago. She was referred by her primary care physician to an ENT physician who then referred her to infectious disease specialist. She had a PICC line placed approximately 9 days ago and was reportedly prescribed cefepime 2 g twice a day for 3 weeks which was to be ordered for home administration through the PICC line. She was treated first at [facility] and then sent to [facility]. She reports having a small surgical procedure on the right ear on 04/19/17. Unfortunately, the patient has not received any medication at her home secondary to insurance issues. The patient denies any fever/chills. She denies any headaches. No nausea/vomiting/ abdominal pain. No chest pain or shortness of breath. Infectious disease has been consulted for evaluation and medical management of malignant otitis externa. (Inna Finnegan) Review of Systems Except as stated in HPI: all other systems reviewed are Neg (Inna Finnegan) Past Family Social History Allergies: Coded Allergies: No Known Allergies (Unverified , 04/27/17) Past Medical History HTN HLD DM Past Surgical History I&D right ear 04/19/17 Reported Medications [Insulin] 5 Units SQ HS Ciprofloxacin (Ciprofloxacin HCl) 500 Mg Tab 500 Mg PO DAILY Metformin (Metformin HCl) 1,000 Mg Tab 1,000 Mg PO DAILY With a meal Lisinopril 20 Mg Tab 20 Mg PO DAILY Hydrochlorothiazide 12.5 Mg Cap 12.5 Mg PO DAILY Glipizide 10 Mg Tab 10 Mg PO DAILY Take 30 minutes before a meal Active Ordered Medications Current Medications Medications (Trade) Dose Ordered Sig/Maura Route Start Time Stop Time Status Last Admin Cefepime HCl 2000 mg/Sodium Chloride 100 ml @ 200 mls/hr Q12H IV 05/09/17 10:30 05/09/17 11:36 (Heparin Inj) 5,000 units Q8H SQ 05/08/17 23:45 05/09/17 09:53 (Microzide) 12.5 mg DAILY PO 05/09/17 09:00 05/09/17 09:51 (Prinivil) 20 mg DAILY PO 05/09/17 09:00 05/09/17 09:51 (D50w (Vial) Inj) 50 ml UNSCH PRN IV PUSH 05/08/17 23:45 (Glucagon Inj) 1 mg UNSCH PRN OTHER 05/08/17 23:45 (NovoLOG SUPPLEMENTAL SCALE) 1 ACHS SLIDING SCALE SQ 05/09/17 08:00 05/09/17 13:00 (Levemir Inj) 5 units Q12HR SQ 05/09/17 21:00 (NS Flush) 2 ml UNSCH PRN IV FLUSH 05/09/17 13:30 (NS Flush) 2 ml BID IV FLUSH 05/09/17 21:00 (Tylenol) 650 mg Q4H PRN PO 05/09/17 13:30 (Zofran Inj) 4 mg Q6H PRN IVP 05/09/17 13:30 (Reglan Inj) 5 mg Q6H PRN IV PUSH 05/09/17 13:30 (Restoril) 15 mg HS PRN PO 05/09/17 13:30 (Percocet 5-325 Mg) 1 tab Q6H PRN PO 05/09/17 13:30 05/09/17 14:10 (Percocet 10-325 Mg) 1 tab Q6H PRN PO 05/09/17 13:30 (Morphine Inj) 2 mg Q3H PRN IV PUSH 05/09/17 13:30 (Morphine Inj) 4 mg Q3H PRN IV PUSH 05/09/17 13:30 (Morphine Inj) 4 mg Q3H PRN IV PUSH 05/09/17 13:30 (Narcan Inj) 0.4 mg UNSCH PRN IV PUSH 05/09/17 13:30 (Ayala-Colace) 1 tab BID PO 05/09/17 21:00 (Milk Of Magnesia Liq) 30 ml Q12H PRN PO 05/09/17 13:30 (Senokot) 17.2 mg Q12H PRN PO 05/09/17 13:30 (Dulcolax Supp) 10 mg DAILY PRN RECTAL 05/09/17 13:30 (Lactulose Liq) 30 ml DAILY PRN PO 05/09/17 13:30 Family History No history of cancer, heart disease or CVA. Social History Patient denies any tobacco use, EtOH consumption or illicit drug use. (Inna Finnegan) Physical Exam Vital Signs Vital Signs Date Time Temp Pulse Resp B/P (MAP) Pulse Ox O2 Delivery O2 Flow Rate FiO2 05/09/17 16:14 97.8 68 18 125/71 (89) 95 05/09/17 11:30 98.1 65 18 118/68 (85) 96 05/09/17 08:00 98.6 92 20 112/91 (98) 100 05/09/17 04:00 98.4 73 16 127/75 (92) 96 05/09/17 01:31 99.2 83 16 144/71 (95) 95 05/09/17 01:30 83 05/08/17 23:41 98.7 78 16 147/68 (94) 98 Room Air 05/08/17 21:33 98.5 83 18 140/66 (90) 100 Room Air 05/08/17 18:42 98.4 92 20 149/72 (97) 98 Physical Exam GENERAL: This is a well-nourished, well-developed Syrian speaking middle aged female patient, in no apparent distress. Awake and alert. SKIN: Cool and dry. PICC line right inner arm, no evidence of infection. HEAD: Atraumatic. Normocephalic. Right ear edematous and erythematous with yellowish drainage, TTP. Unable to assess ear canal or TM secondary to swelling. EYES: Pupils equal round and reactive. Extraocular motions intact. No scleral icterus. No injection or drainage. ENT: Nose without bleeding, purulent drainage or septal hematoma. Throat without erythema, tonsillar hypertrophy or exudate. Uvula midline. Airway patent. NECK: Trachea midline. No JVD or lymphadenopathy. Supple, nontender, no meningeal signs. CARDIOVASCULAR: Regular rate and rhythm without murmurs, gallops, or rubs. RESPIRATORY: Clear to auscultation. Breath sounds equal bilaterally. No wheezes , rales, or rhonchi. GASTROINTESTINAL: Abdomen soft, non-tender, nondistended. No hepato-splenomegaly , or palpable masses. No guarding. MUSCULOSKELETAL: Extremities without clubbing, cyanosis, or edema. No joint tenderness, effusion, or edema noted. No calf tenderness. NEUROLOGICAL: Awake and alert. Cranial nerves II through XII grossly intact. Motor and sensory grossly within normal limits. Five out of 5 muscle strength in all muscle groups. Normal speech. Laboratory Laboratory Tests Test 05/08/17 20:15 05/08/17 20:17 05/09/17 11:18 Lactic Acid Level 0.9 White Blood Count 14.4 9.9 Red Blood Count 3.85 3.67 Hemoglobin 11.9 11.3 Hematocrit 34.5 32.9 Mean Corpuscular Volume 89.7 89.5 Mean Corpuscular Hemoglobin 30.8 30.9 Mean Corpuscular Hemoglobin Concent 34.4 34.5 Red Cell Distribution Width 12.7 12.4 Platelet Count 410 380 Mean Platelet Volume 7.7 7.6 Neutrophils (%) (Auto) 56.6 61.5 Lymphocytes (%) (Auto) 34.1 29.2 Monocytes (%) (Auto) 8.2 8.6 Eosinophils (%) (Auto) 0.4 0.3 Basophils (%) (Auto) 0.7 0.4 Neutrophils # (Auto) 8.1 6.1 Lymphocytes # (Auto) 4.9 2.9 Monocytes # (Auto) 1.2 0.9 Eosinophils # (Auto) 0.1 0.0 Basophils # (Auto) 0.1 0.0 CBC Comment DIFF FINAL DIFF FINAL Differential Comment Prothrombin Time 10.7 Prothromb Time International Ratio 1.1 Activated Partial Thromboplast Time 26.9 Blood Urea Nitrogen 17 14 Creatinine 0.67 0.69 Random Glucose 210 280 Total Protein 8.6 Albumin 2.8 Calcium Level 9.4 9.1 Alkaline Phosphatase 102 Aspartate Amino Transf (AST/SGOT) 9 Alanine Aminotransferase (ALT/SGPT) 13 Total Bilirubin 0.4 Sodium Level 133 133 Potassium Level 4.1 4.0 Chloride Level 99 102 Carbon Dioxide Level 25.4 25.2 Anion Gap 9 6 Estimat Glomerular Filtration Rate 90 87 Date/Time Source Procedure Growth Status 05/08/17 21:50 Wound Face Gram Stain - Final Resulted 05/08/17 21:50 Wound Face Wound Culture - Preliminary Resulted (Inan Finnegan) Result Diagram: 05/09/17 1118 05/09/17 1118 Imaging Last Impressions Lower Extremity Ultrasound 05/08/172139 Signed Impressions: Service Date/Time: Monday, May 08, 2017 21:47 - CONCLUSION: Normal examination. Fabian Rosario MD (Inna Finnegan) Assessment and Plan Assessment and Plan Assessment: Possible sepsis Malignant otitis externa right ear, concern for underlying malignancy Possible otitis media DM HTN Recommendations: Consult ENT Obtain CT head Obtain baseline CRP Continue on IV Cefepime 2gm but increase dose to q8 for pseudomonal coverage obtain medical records from [facility] and [facility] Follow up on culture results Will continue to follow (Inna Finnegan) Assessment and Plan The exam, history, and the medical decision-making described in the above note were completed with the assistance of the mid-level provider. I reviewed and agree with the findings presented. I attest that I had a [id number] encounter with the patient on the same day, and personally performed and documented my assessment and findings in the medical record. Patient seen and examined with BANDAR Lester human factors scientist service used. Patient informs us that she was seen at [facility] and then transferred to [facility]. She was discharge on Cefepime IV using a PICC. It appears that there were some insurance issues and her meds were not delivered and so due to worsening symptoms presents to [facility]. Recs Continue Cefepime IV(increase dose to cover PSAE) ENT consult CT head with IV contrast (re: Otitis Externa with possible otitis media and deeper infection difficult to visualize. Check CRP Follow clinically. May need drainage of the external ear the pinna has a bullous looking edematous appearance. (Indu Saldivar MD) Inna Finnegan May 09, 2017 16:58 Indu Saldivar MD May 09, 2017 17:23
[2017-05-09] MEDS: CEFEPIME INJ 2,000 MG in SODIUM CHLORIDE 0.9% INJ 100 ML IV SCH (18:41)
[2017-05-09] MEDS: oxyCODONE/ACETAMINOPHEN 10 MG/325 MG TAB PO PRN (18:49)
[2017-05-09] MEDS: DOCUSATE SODIUM 50 MG/SENNA 8.6 MG TAB PO SCH (21:58)
[2017-05-09] MEDS: SODIUM CHLORIDE 0.9% FLUSH 10 ML FLUSH IV FLUSH SCH (21:58)
[2017-05-09] MEDS: INSULIN DETEMIR 100 UNITS/ML VIAL SQ SCH (21:59)
[2017-05-10] VITALS (9 sets, daily range): BP systolic 127–160; BP diastolic 65–77; PULSE 57–86; RESP 16–18; TEMP 97.3–98.2; O2SAT 94–98
[2017-05-10] MEDS: CEFEPIME INJ 2,000 MG in SODIUM CHLORIDE 0.9% INJ 100 ML IV SCH ×3 (01:24→17:27)
[2017-05-10 08:20] LABS: AUTOMATED NEUTROPHIL # 7.6 TH/MM3 (1.8-7.7); BASOPHIL % 0.4 % (0.0-2.0); EOSINOPHIL % 0.2 % (0.0-4.0); HEMATOCRIT 33.3 % (35.0-46.0); HEMOGLOBIN 11.3 GM/DL (11.6-15.3); LYMPH % 26.2 % (9.0-44.0); MEAN CELL VOLUME 90.5 FL (80.0-100.0); MEAN CORPUSCULAR HEMOGLOBIN 30.8 PG (27.0-34.0); MEAN CORPUSCULAR HGB CONC 34.1 % (32.0-36.0); MEAN PLATELET VOLUME 7.7 FL (7.0-11.0); MONOCYTE # 0.7 TH/MM3 (0-0.9); NEUT % 67.2 % (16.0-70.0); PLATELET COUNT 390 TH/MM3 (150-450); RED BLOOD COUNT 3.67 MIL/MM3 (4.00-5.30); RED CELL DISTRIBUTION WIDTH 12.5 % (11.6-17.2); WHITE BLOOD COUNT 11.3 TH/MM3 (4.0-11.0)
[2017-05-10 08:38] LABS: ALBUMIN 2.4 GM/DL (3.4-5.0); ALT (GPT) 13 U/L (10-53); AST (GOT) 9 U/L (15-37); BLOOD UREA NITROGEN 16 MG/DL (7-18); CHLORIDE 101 MEQ/L (98-107); CREATININE 0.63 MG/DL (0.50-1.00); GLOMERULAR FILTRATION RATE 96 ML/MIN (>89); GLUCOSE,RANDOM 279 MG/DL (74-106); MAGNESIUM 1.6 MG/DL (1.5-2.5); SODIUM (NA) 133 MEQ/L (136-145)
[2017-05-10 08:47] LABS: ALKALINE PHOSPHATASE 90 U/L (45-117); PHOSPHORUS 2.7 MG/DL (2.5-4.9); TOTAL BILIRUBIN ADULT 0.3 MG/DL (0.2-1.0); TOTAL PROTEIN 7.8 GM/DL (6.4-8.2)
[2017-05-10] MEDS: INSULIN DETEMIR 100 UNITS/ML VIAL SQ SCH ×2 (09:32→20:17)
[2017-05-10] MEDS: LISINOPRIL 20 MG TAB PO SCH (09:33)
[2017-05-10] MEDS: HEPARIN SODIUM - SQ 10,000 UNITS/ML VIAL SQ SCH ×3 (09:33→22:37)
[2017-05-10] MEDS: INSULIN ASPART SUPPLEMENTAL SCALE SQ SCH ×4 (09:33→20:19)
[2017-05-10] MEDS: SODIUM CHLORIDE 0.9% FLUSH 10 ML FLUSH IV FLUSH SCH ×2 (09:33→20:16)
[2017-05-10] MEDS: HYDROCHLOROTHIAZIDE 12.5 MG CAP PO SCH (09:34)
[2017-05-10] MEDS: DOCUSATE SODIUM 50 MG/SENNA 8.6 MG TAB PO SCH ×2 (09:34→20:16)
[2017-05-10] MEDS: INSULIN ASPART 1,000 UNITS/10 ML VIAL SQ SCH ×2 (13:44→17:28)
--- NOTE | 2017-05-10 14:26 | RADRPT ---
EXAM DATE/TIME: 05/10/2017 12:53 [facility] COMPARISON: No previous studies available for comparison. INDICATIONS : Malignant ottis externa.headache IV CONTRAST: 69 cc Omnipaque 350 (iohexol) IV RADIATION DOSE: 36.65 CTDIvol (mGy) MEDICAL HISTORY : Cardiovascular disease. Hypertension. Diabetes SURGICAL HISTORY : None. ENCOUNTER: Initial ACUITY: 1 day PAIN SCALE: 7/10 LOCATION: cranial TECHNIQUE: Multiple contiguous axial images were obtained of the head. Using automated exposure control and adj ustment of the mA and/or kV according to patient size, radiation dose was kept as low as reasonably a chievable to obtain optimal diagnostic quality images. DICOM format image data is available electro nically for review and comparison. FINDINGS: CEREBRUM: The ventricles are normal for age. No evidence of midline shift, cerebral edema or blood products. No extra-axial fluid collections are seen. POSTERIOR FOSSA: The cerebellum and brainstem are intact. The 4th ventricle is midline. The cerebellar pontine angle is unremarkable. EXTRACRANIAL: There is an homogeneous enhancing soft tissue abnormality superficial to the right TMJ and external a coustic canal measuring 3.1 cm. Enhancing soft tissue does extend into the external acoustic canal t o the level of the mid and tympanic membrane. No resorption or destruction of the wall of the EAC. There is an asymmetric appearance to the temporal mandibular joints with possible widening of the ramses nt on the right side. The visualized portion of the orbits is intact. SKULL: The calvaria is intact. No evidence of skull fracture. POST CONTRAST: No abnormal areas of parenchymal or dural enhancement. No evidence of blood-brain barrier breakdown. CONCLUSION: 1. No acute findings in the brain. No abnormal areas of intracranial enhancement. 2. Greater than 3 cm enhancing soft tissue about the right external ear extending into the external a coustic canal and possibly extending into the right TMJ. No evidence of bony destruction of the wall of the external acoustic canal. Meng Mcclelland MD on May 10, 2017 at 14:20 Board Certified Radiologist. This report was verified electronically.
[2017-05-10] MEDS ORDERED: IOHEXOL 350 MG/ML 10 ML VIAL (for RAD DIAG) IVCONTRAST ONE (15:30)
[2017-05-10] MEDS: oxyCODONE/ACETAMINOPHEN 10 MG/325 MG TAB PO PRN (15:33)
--- NOTE | 2017-05-10 15:37 | HHI.IDPN ---
Subjective Subjective Remarks Patient seen and examined with Dr. Saldivar 61-year-old Swiss-speaking female with a past medical history of diabetes, hypertension, hyperlipidemia who presents to the emergency department for evaluation of an ear infection. The patient initially started having right ear pain 3 months ago. She was referred by her primary care physician to an ENT physician who then referred her to infectious disease specialist. She had a PICC line placed approximately 9 days ago and was reportedly prescribed cefepime 2 g twice a day for 3 weeks which was to be ordered for home administration through the PICC line. She was treated first at [facility] and then sent to [facility]. She reports having a small surgical procedure on the right ear on 04/19/17. Unfortunately, the patient has not received any medication at her home secondary to insurance issues. Infectious disease has been consulted for evaluation and medical management of malignant otitis externa. Notes reviewed. [employer] as functional consultant used. Swiss-speaking. Reports dizziness, nausea, especially when getting out of bed. Reports right ear with difficulty hearing that has been ongoing since she had the infection. States that she went to a specialist recently and they did a surgical procedures were in the removal small amount of drainage in her ear. Denies fevers, chills. Denies diarrhea. Denies dysuria. Currently on cefepime IV, PICC line in place right upper arm Antibiotics Cefepime 2 g every 8 hours Lines Right upper arm PICC line, placed approximately 05/01/17 Past Medical History HTN HLD DM (Vishal Marroquin) Allergies: Coded Allergies: No Known Allergies (Unverified , 04/27/17) Objective . Vital Signs Date Time Temp Pulse Resp B/P (MAP) Pulse Ox O2 Delivery O2 Flow Rate FiO2 05/10/17 12:00 68 05/10/17 08:00 97.4 86 16 150/70 (96) 94 05/10/17 08:00 61 05/10/17 04:28 97.7 66 16 147/71 (96) 98 05/10/17 04:00 77 05/10/17 00:00 57 05/10/17 00:00 97.5 64 18 130/69 (89) 95 05/09/17 20:01 97.6 61 16 131/5 (47) 97 05/09/17 20:01 62 05/09/17 16:14 97.8 68 18 125/71 (89) 95 . Laboratory Tests Test 05/08/17 20:17 05/09/17 11:18 05/10/17 07:30 White Blood Count 14.4 TH/MM3 9.9 TH/MM3 11.3 TH/MM3 Red Blood Count 3.85 MIL/MM3 3.67 MIL/MM3 3.67 MIL/MM3 Hemoglobin 11.9 GM/DL 11.3 GM/DL 11.3 GM/DL Hematocrit 34.5 % 32.9 % 33.3 % Mean Corpuscular Volume 89.7 FL 89.5 FL 90.5 FL Mean Corpuscular Hemoglobin 30.8 PG 30.9 PG 30.8 PG Mean Corpuscular Hemoglobin Concent 34.4 % 34.5 % 34.1 % Red Cell Distribution Width 12.7 % 12.4 % 12.5 % Platelet Count 410 TH/MM3 380 TH/MM3 390 TH/MM3 Mean Platelet Volume 7.7 FL 7.6 FL 7.7 FL Neutrophils (%) (Auto) 56.6 % 61.5 % 67.2 % Lymphocytes (%) (Auto) 34.1 % 29.2 % 26.2 % Monocytes (%) (Auto) 8.2 % 8.6 % 6.0 % Eosinophils (%) (Auto) 0.4 % 0.3 % 0.2 % Basophils (%) (Auto) 0.7 % 0.4 % 0.4 % Neutrophils # (Auto) 8.1 TH/MM3 6.1 TH/MM3 7.6 TH/MM3 Lymphocytes # (Auto) 4.9 TH/MM3 2.9 TH/MM3 3.0 TH/MM3 Monocytes # (Auto) 1.2 TH/MM3 0.9 TH/MM3 0.7 TH/MM3 Eosinophils # (Auto) 0.1 TH/MM3 0.0 TH/MM3 0.0 TH/MM3 Basophils # (Auto) 0.1 TH/MM3 0.0 TH/MM3 0.0 TH/MM3 CBC Comment DIFF FINAL DIFF FINAL DIFF FINAL Differential Comment Laboratory Tests Test 05/08/17 20:15 05/08/17 20:17 05/09/17 11:18 05/10/17 07:30 Lactic Acid Level 0.9 mmol/L Blood Urea Nitrogen 17 MG/DL 14 MG/DL 16 MG/DL Creatinine 0.67 MG/DL 0.69 MG/DL 0.63 MG/DL Random Glucose 210 MG/DL 280 MG/DL 279 MG/DL Total Protein 8.6 GM/DL 7.8 GM/DL Albumin 2.8 GM/DL 2.4 GM/DL Calcium Level 9.4 MG/DL 9.1 MG/DL 9.0 MG/DL Alkaline Phosphatase 102 U/L 90 U/L Aspartate Amino Transf (AST/SGOT) 9 U/L 9 U/L Alanine Aminotransferase (ALT/SGPT) 13 U/L 13 U/L Total Bilirubin 0.4 MG/DL 0.3 MG/DL Sodium Level 133 MEQ/L 133 MEQ/L 133 MEQ/L Potassium Level 4.1 MEQ/L 4.0 MEQ/L 4.8 MEQ/L Chloride Level 99 MEQ/L 102 MEQ/L 101 MEQ/L Carbon Dioxide Level 25.4 MEQ/L 25.2 MEQ/L 25.0 MEQ/L Anion Gap 9 MEQ/L 6 MEQ/L 7 MEQ/L Estimat Glomerular Filtration Rate 90 ML/MIN 87 ML/MIN 96 ML/MIN C-Reactive Protein 10.00 MG/DL Phosphorus Level 2.7 MG/DL Magnesium Level 1.6 MG/DL Free Thyroxine 1.70 NG/DL Thyroid Stimulating Hormone 3rd Gen 0.935 uIU/ML Microbiology Date/Time Source Procedure Growth Status 05/08/17 21:50 Wound Face Gram Stain - Final Resulted 05/08/17 21:50 Wound Culture - Preliminary Pseudomonas Species Group D Enterococcus Resulted Imaging Last Impressions Head CT 05/10/17 0000 Signed Impressions: Service Date/Time: May 12:53 - CONCLUSION: 1. No acute findings in the brain. No abnormal areas of intracranial enhancement. 2. Greater than 3 cm enhancing soft tissue about the right external ear extending into the external acoustic canal and possibly extending into the right TMJ. No evidence of bony destruction of the wall of the external acoustic canal. Meng Mcclelland MD Lower Extremity Ultrasound 05/08/172139 Signed Impressions: Service Date/Time: Monday, May 08, 2017 21:47 - CONCLUSION: Normal examination. Fabian Rosario MD Physical Exam GENERAL: This is a well-nourished, well-developed patient, in no apparent distress. Swiss speaking. SKIN: Warm and dry. HEENT: Normocephalic. Pupils equal round and reactive. Nose without bleeding. Airway patent. Right ear edema, erythema noted, yellowish draining minimal amount. Unable to assess TM secondary to edema. No thrush noted. NECK: Trachea midline. CARDIOVASCULAR: Regular rate and rhythm without murmurs, gallops, or rubs. RESPIRATORY: Clear to auscultation. Breath sounds equal bilaterally. No wheezes , rales, or rhonchi. GASTROINTESTINAL: Abdomen soft, non-tender, nondistended. Bowel Sounds normoactive x4. MUSCULOSKELETAL: Extremities without clubbing, cyanosis, or edema. NEUROLOGICAL: Awake and alert. Swiss-speaking. Oriented to time, place, person. Cranial nerves intact. Moves all extremities. Normal speech. LINES: Right upper arm PICC line, no infection noted (Vishal Marroquin) Assessment & Plan Remarks Assessment: Possible sepsis -WBC 14.4 --> 9.9 --> 11.3 -C-reactive 10 Malignant otitis externa right ear, concern for underlying malignancy Possible otitis media -CT of the head no acute findings in the brain. No abnormal areas of intracranial enhancement. Greater than 3 cm enhancing soft tissue about the right external ear extending into the external acoustic canal and possibly extending into the right TMJ. No evidence of bony destruction of the wall of the external acoustic canal. -Wound culture growing Pseudomonas species, group D enterococcus DM HTN Recommendations: Consult ENT appreciate recommendation. CT of the temporal bone ordered. Discuss with ENT if temporal bone does not show any severe abnormalities recommend to go home with Continued and IV antibiotics. If temporal bone shows abnormalities, patient may need to be transferred to another hospital for surgical intervention. Continue on IV Cefepime 2gm but increase dose to q8 for pseudomonal coverage Obtain medical records from [facility] and [facility] Follow up on sensitivity results Advised not to get out of bed without assistance. Will continue to follow (Vishal Marroquin) Remarks The exam, history, and the medical decision-making described in the above note were completed with the assistance of the mid-level provider. I reviewed and agree with the findings presented. I attest that I had a [id number] encounter with the patient on the same day, and personally performed and documented my assessment and findings in the medical record. CT temporal bones dw daughter in room about plan. If bone involved will need transfer to higher level of care Thankful of care provided. Continue Cefepime IV (Indu Saldivar MD) Vishal Marroquin May 10, 2017 15:37 Indu Saldivar MD May 10, 2017 23:13
--- NOTE | 2017-05-10 16:43 | HHI.PR ---
Subjective Remarks Patient sitting on the chair in no acute distress, I discussed with her through official applications systems analyst provided by the hospital with the presence of the nurse Patient stated her pain is precipitated by touch, denied fever or chills Objective Vitals Vital Signs Date Time Temp Pulse Resp B/P (MAP) Pulse Ox O2 Delivery O2 Flow Rate FiO2 05/10/17 12:00 68 05/10/17 08:00 97.4 86 16 150/70 (96) 94 05/10/17 08:00 61 05/10/17 04:28 97.7 66 16 147/71 (96) 98 05/10/17 04:00 77 05/10/17 00:00 57 05/10/17 00:00 97.5 64 18 130/69 (89) 95 05/09/17 20:01 97.6 61 16 131/5 (47) 97 05/09/17 20:01 62 I/O 05/09/17 05/09/17 05/09/17 05/10/17 05/10/17 05/10/17 07:00 15:00 23:00 07:00 15:00 23:00 Intake Total 340 ml 580 ml 100 ml Balance 340 ml 580 ml 100 ml Intake Oral 240 ml 480 ml IV Total 100 ml 100 ml 100 ml # Voids 1 1 2 # Bowel Movements 1 1 Result Diagram: 05/10/17 0730 05/10/17 0730 Objective Remarks GENERAL: This is a well-nourished, well-developed patient, in no apparent distress. Non-Burmese speaker SKIN: No rashes, warm and dry HEAD: Atraumatic. Normocephalic. EYES: Pupils equal round and reactive. Extraocular motions intact. No scleral icterus. ENT: Right years and periauricular area erythematous tender to touch with some crusted pus NECK: Trachea midline. Supple CARDIOVASCULAR: Regular rate and rhythm without murmurs, gallops, or rubs. RESPIRATORY: Fair air entry bilaterally. No wheezes, rales, or rhonchi. GASTROINTESTINAL: Abdomen soft, non-tender, nondistended. Positive bowel sounds MUSCULOSKELETAL: Extremities without clubbing, cyanosis, or edema. Pedal pulses appreciated NEUROLOGICAL: Awake and alert. Moves all extremity. Normal speech.no focal neurological deficit Procedures NONE A/P Assessment and Plan 1. Malignant otitis externa Patient with leukocytosis and tachycardia Wound culture to be followed Cefepime 2 g twice a day Infectious disease consulted, appreciate recommendations ENT consult pending 2. Diabetes mellitus uncontrolled Increase Levemir to 10 units twice daily, at 2 units NovoLog per preprandial 3 times daily Sliding scale insulin Monitor blood glucose 3. Hypertension/hyperlipidemia Continue home medications 5: Lengthy discussion with the patient through the applications systems analyst, will continue IV antibiotic as above awaiting ENT consultation, adjust insulin as above Romain Gu MD May 10, 2017 16:43
[2017-05-10 17:15] LABS: HEMOGLOBIN A1C 11.3 % (4.3-6.0)
[2017-05-11] VITALS (11 sets, daily range): BP systolic 108–156; BP diastolic 56–93; PULSE 58–77; RESP 16–19; TEMP 97.4–98.6; O2SAT 95–98
[2017-05-11] MEDS: CEFEPIME INJ 2,000 MG in SODIUM CHLORIDE 0.9% INJ 100 ML IV SCH ×3 (02:34→19:12)
[2017-05-11] MEDS: DOCUSATE SODIUM 50 MG/SENNA 8.6 MG TAB PO SCH ×2 (09:49→20:48)
[2017-05-11] MEDS: HEPARIN SODIUM - SQ 10,000 UNITS/ML VIAL SQ SCH ×3 (09:49→21:59)
[2017-05-11] MEDS: HYDROCHLOROTHIAZIDE 12.5 MG CAP PO SCH (09:49)
[2017-05-11] MEDS: LISINOPRIL 20 MG TAB PO SCH (09:49)
[2017-05-11] MEDS: INSULIN ASPART SUPPLEMENTAL SCALE SQ SCH ×4 (09:50→21:59)
[2017-05-11] MEDS: INSULIN ASPART 1,000 UNITS/10 ML VIAL SQ SCH ×3 (09:50→18:39)
[2017-05-11] MEDS: INSULIN DETEMIR 100 UNITS/ML VIAL SQ SCH ×2 (09:51→21:59)
[2017-05-11] MEDS: SODIUM CHLORIDE 0.9% FLUSH 10 ML FLUSH IV FLUSH SCH ×2 (09:51→20:51)
--- NOTE | 2017-05-11 11:22 | RADRPT ---
EXAM DATE/TIME: 05/11/2017 10:29 [place] COMPARISON: CT BRAIN W & W/O CONTRAST, May 10, 2017, 12:53. INDICATIONS : Malignant ottis externa, headache RADIATION DOSE: 63.25 CTDIvol (mGy) MEDICAL HISTORY : Cardiovascular disease. Hypertension. Diabetes SURGICAL HISTORY : None. ENCOUNTER: Initial ACUITY: 2 days PAIN SCORE: 5/10 LOCATION: Bilateral Temporal bones TECHNIQUE: Volumetric scanning of the temporal bone was performed. Using automated exposure control and adjustm ent of the mA and/or kV according to patient size, radiation dose was kept as low as reasonably achie vable to obtain optimal diagnostic quality images. DICOM format image data is available electronicall y for review and comparison. FINDINGS: Thin section imaging of the temporal bone was performed. There is soft tissue density filling the ri ght external acoustic meatus extending to the tympanic membrane. There is some retraction of the tym panic membrane the stapes attachment, but no soft tissue within the interpeduncular ear. The other o ssicles are in normal alignment. There are a few opacified inferior mastoid air cells stopped the co rtex of the internal acoustic meatus is intact and not thickened. No enlargement of the right EAC. The left temporal bone is intact and the inner ear structures are normal in configuration and stop no opacified left mastoid air cells. CONCLUSION: 1. Soft tissue mass extending from the perirectal region into the right EAC with out enlargement of t he canal diameter and without sclerosis. The soft tissue extends and is limited by the tympanic memb kenji. No middle ear abnormalities seen. 2. Mild right inferior mastoid disease with multiple opacified air cells, but no significant septal s clerosis. Meng Mcclelland MD on May 11, 2017 at 11:14 Board Certified Radiologist. This report was verified electronically.
--- NOTE | 2017-05-11 14:50 | HHI.IDPN ---
Subjective Subjective Remarks Patient seen and examined with Dr. Saldivar 61-year-old Palauan-speaking female with a past medical history of diabetes, hypertension, hyperlipidemia who presents to the emergency department for evaluation of an ear infection. The patient initially started having right ear pain 3 months ago. She was referred by her primary care physician to an ENT physician who then referred her to infectious disease specialist. She had a PICC line placed approximately 9 days ago and was reportedly prescribed cefepime 2 g twice a day for 3 weeks which was to be ordered for home administration through the PICC line. She was treated first at [facility] and then sent to [facility]. She reports having a small surgical procedure on the right ear on 04/19/17. Unfortunately, the patient has not received any medication at her home secondary to insurance issues. Infectious disease has been consulted for evaluation and medical management of malignant otitis externa. Notes reviewed. Overnight events noted. Palauan-speaking. Reports feeling a lot better. Reports dizziness and nausea improved. Reports right ear continues to have difficulty hearing. Asking when she can go home. Denies fevers, chills. Denies vomiting, diarrhea. Denies dysuria. Currently on cefepime IV, PICC line in right upper arm. Antibiotics Cefepime 2 g every 8 hours Lines Right upper arm PICC line, placed approximately 05/01/17 Past Medical History HTN HLD DM (Vishal Marroquin) Allergies: Coded Allergies: No Known Allergies (Unverified , 04/27/17) Objective . Vital Signs Date Time Temp Pulse Resp B/P (MAP) Pulse Ox O2 Delivery O2 Flow Rate FiO2 05/11/17 12:48 60 05/11/17 12:00 97.9 74 19 131/65 (87) 97 05/11/17 08:00 98.1 72 18 142/88 (106) 98 05/11/17 04:00 97.8 67 18 134/60 (84) 96 05/11/17 04:00 Room Air 05/11/17 03:57 61 05/11/17 00:00 Room Air 05/11/17 00:00 98.6 76 17 108/56 (73) 95 05/10/17 23:50 68 05/10/17 20:10 71 05/10/17 20:00 98.2 75 17 160/77 (104) 96 05/10/17 16:00 97.3 69 16 127/65 (85) 95 05/10/17 16:00 65 . Laboratory Tests Test 05/10/17 07:30 White Blood Count 11.3 TH/MM3 Red Blood Count 3.67 MIL/MM3 Hemoglobin 11.3 GM/DL Hematocrit 33.3 % Mean Corpuscular Volume 90.5 FL Mean Corpuscular Hemoglobin 30.8 PG Mean Corpuscular Hemoglobin Concent 34.1 % Red Cell Distribution Width 12.5 % Platelet Count 390 TH/MM3 Mean Platelet Volume 7.7 FL Neutrophils (%) (Auto) 67.2 % Lymphocytes (%) (Auto) 26.2 % Monocytes (%) (Auto) 6.0 % Eosinophils (%) (Auto) 0.2 % Basophils (%) (Auto) 0.4 % Neutrophils # (Auto) 7.6 TH/MM3 Lymphocytes # (Auto) 3.0 TH/MM3 Monocytes # (Auto) 0.7 TH/MM3 Eosinophils # (Auto) 0.0 TH/MM3 Basophils # (Auto) 0.0 TH/MM3 CBC Comment DIFF FINAL Differential Comment Laboratory Tests Test 05/10/17 07:30 Blood Urea Nitrogen 16 MG/DL Creatinine 0.63 MG/DL Random Glucose 279 MG/DL Total Protein 7.8 GM/DL Albumin 2.4 GM/DL Calcium Level 9.0 MG/DL Phosphorus Level 2.7 MG/DL Magnesium Level 1.6 MG/DL Alkaline Phosphatase 90 U/L Aspartate Amino Transf (AST/SGOT) 9 U/L Alanine Aminotransferase (ALT/SGPT) 13 U/L Total Bilirubin 0.3 MG/DL Sodium Level 133 MEQ/L Potassium Level 4.8 MEQ/L Chloride Level 101 MEQ/L Carbon Dioxide Level 25.0 MEQ/L Anion Gap 7 MEQ/L Estimat Glomerular Filtration Rate 96 ML/MIN Hemoglobin A1c 11.3 % Free Thyroxine 1.70 NG/DL Thyroid Stimulating Hormone 3rd Gen 0.935 uIU/ML Microbiology Date/Time Source Procedure Growth Status 05/08/17 21:50 Wound Face Gram Stain - Final Resulted 05/08/17 21:50 Wound Culture - Preliminary Pseudomonas Species Group D Enterococcus Resulted Imaging Last Impressions Head CT 05/10/17 0000 Signed Impressions: Service Date/Time: May 12:53 - CONCLUSION: 1. No acute findings in the brain. No abnormal areas of intracranial enhancement. 2. Greater than 3 cm enhancing soft tissue about the right external ear extending into the external acoustic canal and possibly extending into the right TMJ. No evidence of bony destruction of the wall of the external acoustic canal. Meng Mcclelland MD Lower Extremity Ultrasound 05/08/17 [id number] Signed Impressions: Service Date/Time: Monday, May 08, 2017 21:47 - CONCLUSION: Normal examination. Fabian Rosario MD Physical Exam GENERAL: This is a well-nourished, well-developed patient, in no apparent distress. Palauan speaking. SKIN: Warm and dry. HEENT: Normocephalic. Pupils equal round and reactive. Nose without bleeding. Airway patent. Right ear edema, erythema noted, yellowish draining minimal amount - improved. Unable to assess TM secondary to edema. No thrush noted. NECK: Trachea midline. CARDIOVASCULAR: Regular rate and rhythm without murmurs, gallops, or rubs. RESPIRATORY: Clear to auscultation. Breath sounds equal bilaterally. No wheezes , rales, or rhonchi. GASTROINTESTINAL: Abdomen soft, non-tender, nondistended. Bowel Sounds normoactive x4. MUSCULOSKELETAL: Extremities without clubbing, cyanosis, or edema. NEUROLOGICAL: Awake and alert. Palauan-speaking. Oriented to time, place, person. Cranial nerves intact. Moves all extremities. Normal speech. LINES: Right upper arm PICC line, no infection noted (Vishal Marroquin) Assessment & Plan Remarks Possible sepsis, secondary to otitis media Malignant otitis externa right ear, concern for underlying malignancy Possible otitis media -WBC 14.4 --> 9.9 --> 11.3 -C-reactive 10 -CT of the head no acute findings in the brain. No abnormal areas of intracranial enhancement. Greater than 3 cm enhancing soft tissue about the right external ear extending into the external acoustic canal and possibly extending into the right TMJ. No evidence of bony destruction of the wall of the external acoustic canal. -Wound culture growing Pseudomonas species, group D enterococcus -CT of the temporal bone showed soft tissue mass extending from the perirectal region into the right EAC with out enlargement of the canal diameter and without sclerosis. The soft tissue extends and is limited by the tympanic membrane. No middle ear abnormality seen. Mild right inferior mastoid disease with multiple opacified air cells, but no significant septal sclerosis. The left temporal bone is intact and the inner ear structures are normal in configuration and stop no opacified left mastoid air cells DM HTN Recommendations: Consult ENT appreciate recommendation. CT of the temporal bone with left temporal bone intact and inner ears structures are normal Continue on IV Cefepime 2gm but increase dose to q8 for pseudomonal coverage, pending final sensitivities. Obtain medical records from [facility] and [facility] We will continue to follow clinically. Will recommend discharge antibiotics. (Vishal Marrouqin) Remarks The exam, history, and the medical decision-making described in the above note were completed with the assistance of the mid-level provider. I reviewed and agree with the findings presented. I attest that I had a [id number] encounter with the patient on the same day, and personally performed and documented my assessment and findings in the medical record. If cleared by ENT for discharge please call me set up operator. Anticipate Discharge on Cefepime IV Will dw CM (Indu Saldivar MD) Vishal Marroquin May 11, 2017 14:50 Indu Saldivar MD May 11, 2017 16:39
--- NOTE | 2017-05-11 18:39 | HHI.PR ---
Subjective Remarks stated ear erythma and pain slightly inc no f/c for CT temporal bone Objective Vitals Vital Signs Date Time Temp Pulse Resp B/P (MAP) Pulse Ox O2 Delivery O2 Flow Rate FiO2 05/11/17 16:00 97.9 69 16 144/69 (94) 97 05/11/17 15:15 58 05/11/17 12:48 60 05/11/17 12:00 97.9 74 19 131/65 (87) 97 05/11/17 08:00 98.1 72 18 142/88 (106) 98 05/11/17 08:00 Room Air 05/11/17 04:00 97.8 67 18 134/60 (84) 96 05/11/17 04:00 Room Air 05/11/17 03:57 61 05/11/17 00:00 Room Air 05/11/17 00:00 98.6 76 17 108/56 (73) 95 05/10/17 23:50 68 05/10/17 20:10 71 05/10/17 20:00 98.2 75 17 160/77 (104) 96 I/O 05/10/17 05/10/17 05/10/17 05/11/17 05/11/17 05/11/17 07:00 15:00 23:00 07:00 15:00 23:00 Intake Total 480 ml 340 ml Output Total 540 ml Balance -60 ml 340 ml Intake Oral 480 ml 240 ml IV Total 100 ml Output Urine Total 540 ml # Voids 2 3 # Bowel Movements 1 0 0 Result Diagram: 05/10/17 0730 05/10/17 0730 Objective Remarks GENERAL: This is a well-nourished, well-developed patient, in no apparent distress. Non-Yoruba speaker SKIN: No rashes, warm and dry HEAD: Atraumatic. Normocephalic. EYES: Pupils equal round and reactive. Extraocular motions intact. No scleral icterus. ENT: Right years and periauricular area erythematous tender to touch with some crusted pus NECK: Trachea midline. Supple CARDIOVASCULAR: Regular rate and rhythm without murmurs, gallops, or rubs. RESPIRATORY: Fair air entry bilaterally. No wheezes, rales, or rhonchi. GASTROINTESTINAL: Abdomen soft, non-tender, nondistended. Positive bowel sounds MUSCULOSKELETAL: Extremities without clubbing, cyanosis, or edema. Pedal pulses appreciated NEUROLOGICAL: Awake and alert. Moves all extremity. Normal speech.no focal neurological deficit Procedures NONE A/P Assessment and Plan 1. Malignant otitis externa Patient with leukocytosis and tachycardia Wound culture to be followed Cefepime 2 g twice a day Infectious disease consulted, appreciate recommendations appreciate ENT consult >> temporal bone CT 2. Diabetes mellitus uncontrolled Increase Levemir to 10 units twice daily, at 2 units NovoLog per preprandial 3 times daily Sliding scale insulin Monitor blood glucose 3. Hypertension/hyperlipidemia Continue home medications 4/5: Lengthy discussion with the patient through the chemistry lecturer, will continue IV antibiotic as above awaiting ENT consultation, adjust insulin as above 4/6: appreciate ENT consult , temporal bone CT Romain Raygoza MD May 11, 2017 18:39
[2017-05-12] VITALS (9 sets, daily range): BP systolic 114–150; BP diastolic 58–83; PULSE 57–76; RESP 16–20; TEMP 97.5–98.2; O2SAT 95–98
[2017-05-12] MEDS: CEFEPIME INJ 2,000 MG in SODIUM CHLORIDE 0.9% INJ 100 ML IV SCH ×3 (02:09→17:26)
[2017-05-12] MEDS: INSULIN DETEMIR 100 UNITS/ML VIAL SQ SCH ×2 (08:44→20:34)
[2017-05-12] MEDS: INSULIN ASPART 1,000 UNITS/10 ML VIAL SQ SCH ×3 (08:44→17:25)
[2017-05-12] MEDS: SODIUM CHLORIDE 0.9% FLUSH 10 ML FLUSH IV FLUSH SCH ×2 (08:45→20:35)
[2017-05-12] MEDS: DOCUSATE SODIUM 50 MG/SENNA 8.6 MG TAB PO SCH ×3 (08:45→20:35)
[2017-05-12] MEDS: HEPARIN SODIUM - SQ 10,000 UNITS/ML VIAL SQ SCH ×3 (08:45→23:50)
[2017-05-12] MEDS: LISINOPRIL 20 MG TAB PO SCH (08:45)
[2017-05-12] MEDS: INSULIN ASPART SUPPLEMENTAL SCALE SQ SCH ×4 (08:45→20:34)
[2017-05-12] MEDS: HYDROCHLOROTHIAZIDE 12.5 MG CAP PO SCH (08:46)
--- NOTE | 2017-05-12 14:06 | HHI.PR ---
Subjective Remarks Patient patient reported feeling less pain in her ears ENT ordered CT bone temporal, recommended continuing IV antibiotic and follow- up as an outpatient Wound showed Enterococcus faecalis and multiple resistant organisms, continue on cefepime to cover Pseudomonas IV, ID following Objective Vitals Vital Signs Date Time Temp Pulse Resp B/P (MAP) Pulse Ox O2 Delivery O2 Flow Rate FiO2 05/12/17 12:00 71 05/12/17 08:00 97.6 63 20 127/74 (91) 97 05/12/17 08:00 97 Room Air 05/12/17 08:00 57 05/12/17 04:00 97.7 66 16 114/71 (85) 95 05/12/17 04:00 Room Air 05/12/17 03:44 61 05/12/17 00:00 98.0 67 16 116/71 (86) 96 05/12/17 00:00 Room Air 05/11/17 23:48 63 05/11/17 20:50 Room Air 05/11/17 20:00 97.4 77 19 156/93 (114) 98 05/11/17 20:00 68 05/11/17 19:31 72 05/11/17 16:00 97.9 69 16 144/69 (94) 97 05/11/17 15:15 58 I/O 05/11/17 05/11/17 05/11/17 05/12/17 05/12/17 05/12/17 07:00 15:00 23:00 07:00 15:00 23:00 Intake Total 340 ml 100 ml 340 ml 100 ml Balance 340 ml 100 ml 340 ml 100 ml Intake Oral 240 ml 240 ml IV Total 100 ml 100 ml 100 ml 100 ml # Voids 3 3 # Bowel Movements 0 1 Result Diagram: 05/10/17 0730 05/10/17 0730 Objective Remarks GENERAL: This is a well-nourished, well-developed patient, in no apparent distress. Non-Vietnamese speaker SKIN: No rashes, warm and dry HEAD: Atraumatic. Normocephalic. EYES: Pupils equal round and reactive. Extraocular motions intact. No scleral icterus. ENT: Right years and periauricular area less erythematous tender to touch with some crusted pus NECK: Trachea midline. Supple CARDIOVASCULAR: Regular rate and rhythm without murmurs, gallops, or rubs. RESPIRATORY: Fair air entry bilaterally. No wheezes, rales, or rhonchi. GASTROINTESTINAL: Abdomen soft, non-tender, nondistended. Positive bowel sounds MUSCULOSKELETAL: Extremities without clubbing, cyanosis, or edema. Pedal pulses appreciated NEUROLOGICAL: Awake and alert. Moves all extremity. Normal speech.no focal neurological deficit Procedures NONE A/P Assessment and Plan 1. Malignant otitis externa Patient with leukocytosis and tachycardia Wound culture to be followed Cefepime 2 g twice a day Infectious disease consulted, appreciate recommendations appreciate ENT consult >> temporal bone CT 2. Diabetes mellitus uncontrolled Increase Levemir to 10 units twice daily, at 2 units NovoLog per preprandial 3 times daily Sliding scale insulin Monitor blood glucose 3. Hypertension/hyperlipidemia Continue home medications 4/5: Lengthy discussion with the patient through the underground utility locator, will continue IV antibiotic as above awaiting ENT consultation, adjust insulin as above 6: appreciate ENT consult , temporal bone CT P 05/12: Temporal bone CT scan personally reviewed by me soft tissue swelling, ENT recommending continuing IV antibiotic, ID expecting discharge on IV antibiotic, I discussed with the mattress spring encaser for outpatient arrangement Romain Gu MD May 12, 2017 14:06
[2017-05-13] VITALS (7 sets, daily range): BP systolic 119–160; BP diastolic 63–92; PULSE 60–73; RESP 16–20; TEMP 97.4–97.9; O2SAT 95–99
[2017-05-13] MEDS: CEFEPIME INJ 2,000 MG in SODIUM CHLORIDE 0.9% INJ 100 ML IV SCH ×3 (02:20→16:03)
[2017-05-13] MEDS: DOCUSATE SODIUM 50 MG/SENNA 8.6 MG TAB PO SCH ×2 (07:47→21:00)
[2017-05-13] MEDS: HYDROCHLOROTHIAZIDE 12.5 MG CAP PO SCH (07:47)
[2017-05-13] MEDS: INSULIN DETEMIR 100 UNITS/ML VIAL SQ SCH ×2 (07:47→20:58)
[2017-05-13] MEDS: HEPARIN SODIUM - SQ 10,000 UNITS/ML VIAL SQ SCH ×2 (07:47→16:03)
[2017-05-13] MEDS: LISINOPRIL 20 MG TAB PO SCH (07:47)
[2017-05-13] MEDS: SODIUM CHLORIDE 0.9% FLUSH 10 ML FLUSH IV FLUSH SCH ×2 (07:48→21:00)
[2017-05-13] MEDS: INSULIN ASPART SUPPLEMENTAL SCALE SQ SCH ×4 (07:51→20:58)
[2017-05-13] MEDS: INSULIN ASPART 1,000 UNITS/10 ML VIAL SQ SCH ×3 (07:51→16:06)
--- NOTE | 2017-05-13 14:14 | HHI.PR ---
Subjective Remarks Patient feels slightly better today, erythema of the ear relatively improved, no fever Discussed with ID MALL MANAGER Objective Vitals Vital Signs Date Time Temp Pulse Resp B/P (MAP) Pulse Ox O2 Delivery O2 Flow Rate FiO2 05/13/17 12:00 97.8 65 20 142/67 (92) 98 05/13/17 09:22 Room Air 05/13/17 08:00 97.6 70 20 145/68 (93) 99 05/13/17 08:00 73 05/13/17 06:13 97.9 70 18 119/63 (81) 95 05/13/17 04:00 Room Air 05/13/17 04:00 60 05/13/17 00:00 Room Air 05/13/17 00:00 66 05/12/17 23:30 98.2 75 18 132/60 (84) 98 05/12/17 20:16 97.6 73 18 122/58 (79) 96 05/12/17 20:00 Room Air 05/12/17 20:00 69 05/12/17 16:00 76 05/12/17 16:00 97.5 74 20 150/83 (105) 98 I/O 05/12/17 05/12/17 05/12/17 05/13/17 05/13/17 05/13/17 07:00 15:00 23:00 07:00 15:00 23:00 Intake Total 340 ml 100 ml 480 ml 120 ml Balance 340 ml 100 ml 480 ml 120 ml Intake Oral 240 ml 480 ml 120 ml IV Total 100 ml 100 ml # Voids 3 2 2 # Bowel Movements 1 1 Result Diagram: 05/10/1730 05/10/17 0730 Objective Remarks GENERAL: This is a well-nourished, well-developed patient, in no apparent distress. Non-Palestinian speaker SKIN: No rashes, warm and dry HEAD: Atraumatic. Normocephalic. EYES: Pupils equal round and reactive. Extraocular motions intact. No scleral icterus. ENT: Right years and periauricular area less erythematous tender to touch with some crusted pus NECK: Trachea midline. Supple CARDIOVASCULAR: Regular rate and rhythm without murmurs, gallops, or rubs. RESPIRATORY: Fair air entry bilaterally. No wheezes, rales, or rhonchi. GASTROINTESTINAL: Abdomen soft, non-tender, nondistended. Positive bowel sounds MUSCULOSKELETAL: Extremities without clubbing, cyanosis, or edema. Pedal pulses appreciated NEUROLOGICAL: Awake and alert. Moves all extremity. Normal speech.no focal neurological deficit Procedures NONE A/P Assessment and Plan 1. Malignant otitis externa Patient with leukocytosis and tachycardia Wound culture to be followed Cefepime 2 g twice a day Infectious disease consulted, appreciate recommendations appreciate ENT consult >> temporal bone CT reviewed personally by me, cleared to continue antibiotic per ID and follow-up as an outpatient Discussed with ID MALL MANAGER today will need to discuss further IV administration antibiotic post discharge tomorrow with geriatric social worker 2. Diabetes mellitus uncontrolled Again increase Levemir to 15 units twice daily, at 2 units NovoLog per preprandial 3 times daily for better blood glucose optimization Sliding scale insulin Monitor blood glucose 3. Hypertension/hyperlipidemia Continue home medications 4/5: Lengthy discussion with the patient through the enterprise application analyst, will continue IV antibiotic as above awaiting ENT consultation, adjust insulin as above 4/6: appreciate ENT consult , temporal bone CT P 7: Temporal bone CT scan personally reviewed by me soft tissue swelling, ENT recommending continuing IV antibiotic, ID expecting discharge on IV antibiotic, I discussed with the home health care case manager for outpatient arrangement Romain Gu MD May 13, 2017 14:14
--- NOTE | 2017-05-13 15:20 | HHI.IDPN ---
Subjective Subjective Remarks Patient seen and examined with Dr. Saldivar 61-year-old Romanian-speaking female with a past medical history of diabetes, hypertension, hyperlipidemia who presents to the emergency department for evaluation of an ear infection. The patient initially started having right ear pain 3 months ago. She was referred by her primary care physician to an ENT physician who then referred her to infectious disease specialist. She had a PICC line placed approximately 9 days ago and was reportedly prescribed cefepime 2 g twice a day for 3 weeks which was to be ordered for home administration through the PICC line. She was treated first at [facility] and then sent to [facility]. She reports having a small surgical procedure on the right ear on 04/19/17. Unfortunately, the patient has not received any medication at her home secondary to insurance issues. Infectious disease has been consulted for evaluation and medical management of malignant otitis externa. Notes reviewed. Romanian-speaking. Denies any pain in ear today no fever no rash Asking when she can go home. Antibiotics Cefepime 2 g every 8 hours Lines Right upper arm PICC line, placed approximately 05/01/17 Past Medical History HTN HLD DM (Inna Finnegan) Allergies: Coded Allergies: No Known Allergies (Unverified , 04/27/17) Objective . Vital Signs Date Time Temp Pulse Resp B/P (MAP) Pulse Ox O2 Delivery O2 Flow Rate FiO2 05/13/17 12:00 97.8 65 20 142/67 (92) 98 05/13/17 09:22 Room Air 05/13/17 08:00 97.6 70 20 145/68 (93) 99 05/13/17 08:00 73 05/13/17 06:13 97.9 70 18 119/63 (81) 95 05/13/17 04:00 Room Air 05/13/17 04:00 60 05/13/17 00:00 Room Air 05/13/17 00:00 66 05/12/17 23:30 98.2 75 18 132/60 (84) 98 05/12/17 20:16 97.6 73 18 122/58 (79) 96 05/12/17 20:00 Room Air 05/12/17 20:00 69 05/12/17 16:00 76 05/12/17 16:00 97.5 74 20 150/83 (105) 98 . Microbiology Date/Time Source Procedure Growth Status 05/08/17 21:50 Wound Face Gram Stain - Final Complete 05/08/17 21:50 Wound Culture - Final Chryseobacterium Indologenes Multi-Drug Resistant Enterococcus Faecalis Complete Imaging Last Impressions Temporal Bone CT 05/10/17 0000 Signed Impressions: Service Date/Time: Thursday, May 11, 2017 10:29 - CONCLUSION: 1. Soft tissue mass extending from the perirectal region into the right EAC with out enlargement of the canal diameter and without sclerosis. The soft tissue extends and is limited by the tympanic membrane. No middle ear abnormalities seen. 2. Mild right inferior mastoid disease with multiple opacified air cells , but no significant septal sclerosis. Meng Mcclelland MD Head CT 05/10/17 0000 Signed Impressions: Service Date/Time: May 12:53 - CONCLUSION: 1. No acute findings in the brain. No abnormal areas of intracranial enhancement. 2. Greater than 3 cm enhancing soft tissue about the right external ear extending into the external acoustic canal and possibly extending into the right TMJ. No evidence of bony destruction of the wall of the external acoustic canal. Meng Mcclelland MD Lower Extremity Ultrasound 05/08/172139 Signed Impressions: Service Date/Time: Monday, May 08, 2017 21:47 - CONCLUSION: Normal examination. Fabian Rosario MD Physical Exam GENERAL: This is a well-nourished, well-developed Romanian speaking female patient, in no apparent distress. SKIN: Warm and dry. HEENT: Normocephalic. Pupils equal round and reactive. Nose without bleeding. Airway patent. Right ear edema, erythema noted, yellowish draining minimal amount - improved. Unable to assess TM secondary to edema. No thrush noted. NECK: Trachea midline. CARDIOVASCULAR: Regular rate and rhythm without murmurs, gallops, or rubs. RESPIRATORY: Clear to auscultation. Breath sounds equal bilaterally. No wheezes , rales, or rhonchi. GASTROINTESTINAL: Abdomen soft, non-tender, nondistended. Bowel Sounds normoactive x4. MUSCULOSKELETAL: Extremities without clubbing, cyanosis, or edema. NEUROLOGICAL: Awake and alert. Romanian-speaking. Oriented to time, place, person. Cranial nerves intact. Moves all extremities. Normal speech. LINES: Right upper arm PICC line, no infection noted (Kain,Inna PA) Assessment & Plan Remarks Possible sepsis, secondary to otitis media Malignant otitis externa right ear, concern for underlying malignancy Possible otitis media -WBC 14.4 --> 9.9 --> 11.3 -CRP 10 -CT of the head no acute findings in the brain. No abnormal areas of intracranial enhancement. Greater than 3 cm enhancing soft tissue about the right external ear extending into the external acoustic canal and possibly extending into the right TMJ. No evidence of bony destruction of the wall of the external acoustic canal. -Wound culture growing Chryseobacterium Indologenes, MDR, Enterococcus Faecalis -CT of the temporal bone showed soft tissue mass extending from the perirectal region into the right EAC with out enlargement of the canal diameter and without sclerosis. The soft tissue extends and is limited by the tympanic membrane. No middle ear abnormality seen. Mild right inferior mastoid disease with multiple opacified air cells, but no significant septal sclerosis. The left temporal bone is intact and the inner ear structures are normal in configuration and stop no opacified left mastoid air cells DM HTN Recommendations: Consult ENT appreciate recommendation. CT of the temporal bone with left temporal bone intact and inner ears structures are normal Continue on IV Cefepime We will continue to follow clinically. Ongoing discussion with CM regarding outpatient IV abx at discharge, infusion center vs home with [facility] (Inna Finnegan) Remarks The exam, history, and the medical decision-making described in the above note were completed with the assistance of the mid-level provider. I reviewed and agree with the findings presented. I attest that I had a [id number] encounter with the patient on the same day, and personally performed and documented my assessment and findings in the medical record. Clinically responding to Cefepime very well Wishes to go home. Superficial cultures from skin of ear reviewed appear to be colonization as patient clinically responding to Cefepime IV Await Process Owner input about infusion center (Cefepime on pump) vs Home health to provide infusion orders. (Indu Saldivar MD) Inna Finnegan May 13, 2017 15:20 Indu Saldivar MD May 13, 2017 17:13
[2017-05-14] VITALS: BP 125/65; PULSE 54; PULSE 60; PULSE 66; RESP 17; TEMP 98; O2SAT 96
[2017-05-14] MEDS: HEPARIN SODIUM - SQ 10,000 UNITS/ML VIAL SQ SCH ×3 (00:02→15:53)
[2017-05-14] MEDS: CEFEPIME INJ 2,000 MG in SODIUM CHLORIDE 0.9% INJ 100 ML IV SCH ×2 (02:31→10:07)
[2017-05-14 04:00] VITALS: BP 124/68; PULSE 59; PULSE 67; RESP 16; TEMP 97.7; O2SAT 97
[2017-05-14 08:00] VITALS: BP 131/65; PULSE 70; PULSE 75; RESP 20; TEMP 97.9; O2SAT 95
[2017-05-14] MEDS: LISINOPRIL 20 MG TAB PO SCH (08:03)
[2017-05-14] MEDS: DOCUSATE SODIUM 50 MG/SENNA 8.6 MG TAB PO SCH (08:03)
[2017-05-14] MEDS: HYDROCHLOROTHIAZIDE 12.5 MG CAP PO SCH (08:03)
[2017-05-14] MEDS: INSULIN DETEMIR 100 UNITS/ML VIAL SQ SCH (08:04)
[2017-05-14] MEDS: SODIUM CHLORIDE 0.9% FLUSH 10 ML FLUSH IV FLUSH SCH (08:04)
[2017-05-14] MEDS: INSULIN ASPART 1,000 UNITS/10 ML VIAL SQ SCH ×3 (10:06→16:14)
[2017-05-14] MEDS: INSULIN ASPART SUPPLEMENTAL SCALE SQ SCH ×3 (10:07→16:16)
--- NOTE | 2017-05-14 11:55 | PD.PN.STU ---
Subjective Remarks Patient was seen with the presence of a furnace loader. She states that she is feeling better and that she has less pain compared to when she first arrived. Patient is tolerating antibiotics well. Objective Vitals Vital Signs Date Time Temp Pulse Resp B/P (MAP) Pulse Ox O2 Delivery O2 Flow Rate FiO2 05/14/17 08:00 97.9 70 20 131/65 (87) 95 05/14/17 07:00 Room Air 05/14/17 04:00 59 05/14/17 04:00 Room Air 05/14/17 04:00 97.7 67 16 124/68 (86) 97 05/14/17 00:00 Room Air 05/14/17 00:00 54 05/14/17 00:00 98.0 60 17 125/65 (85) 96 05/13/17 20:00 Room Air 05/13/17 20:00 97.8 69 16 128/64 (85) 95 05/13/17 20:00 66 05/13/17 16:00 97.4 69 20 160/92 (114) 99 05/13/17 16:00 72 05/13/17 12:00 97.8 65 20 142/67 (92) 98 I/O 05/13/17 05/13/17 05/13/17 05/14/17 05/14/17 05/14/17 07:00 15:00 23:00 07:00 15:00 23:00 Intake Total 120 ml 360 ml 450 ml Balance 120 ml 360 ml 450 ml Intake Oral 120 ml 360 ml 450 ml # Voids 2 2 2 # Bowel Movements 0 0 Result Diagram: 05/10/1730 05/10/17 0730 Imaging Last Impressions Temporal Bone CT 05/10/17 0000 Signed Impressions: Service Date/Time: Thursday, May 11, 2017 10:29 - CONCLUSION: 1. Soft tissue mass extending from the perirectal region into the right EAC with out enlargement of the canal diameter and without sclerosis. The soft tissue extends and is limited by the tympanic membrane. No middle ear abnormalities seen. 2. Mild right inferior mastoid disease with multiple opacified air cells , but no significant septal sclerosis. Meng Mcclelland MD Head CT 05/10/17 0000 Signed Impressions: Service Date/Time: May 12:53 - CONCLUSION: 1. No acute findings in the brain. No abnormal areas of intracranial enhancement. 2. Greater than 3 cm enhancing soft tissue about the right external ear extending into the external acoustic canal and possibly extending into the right TMJ. No evidence of bony destruction of the wall of the external acoustic canal. Meng Mcclelland MD Lower Extremity Ultrasound 05/08/17 3490 Signed Impressions: Service Date/Time: Monday, May 08, 2017 21:47 - CONCLUSION: Normal examination. Fabian Rosario MD Objective Remarks GENERAL: A well nourished and well-developed patient in no accrue distress who speaks Sinhala only. SKIN: Warm and dry. HEENT: Normocephalic. No scleral icterus. No injection or drainage. No JVD or lymphadenopathy. Right ear has mild edema of the tragus with some dry crusted pus. The ear is mildly tender to palpation and has minimal erythema. CARDIOVASCULAR: Regular rate and rhythm without murmurs, gallops, or rubs. RESPIRATORY: Breath sounds equal bilaterally. No accessory muscle use. GASTROINTESTINAL: Abdomen soft, non-tender, nondistended. MUSCULOSKELETAL: No cyanosis, or edema. BACK: Nontender without obvious deformity. No CVA tenderness. A/P Assessment and Plan 1. Malignant Otitis Externa -Cefepime 2g IV twice daily -ID is consulted and is working with social media developer on arranging outpatient IV antibiotics. 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 2. Diabetes Mellitus - uncontrolled -Levemir - 15 units twice daily, at 2 units NovoLog per preprandial 3 times daily for better blood glucose optimization -Sliding scale insulin -Monitor blood glucose 3. Hypertension/hyperlipidemia -Continue home medications Aden Finley M3 May 14, 2017 11:54
[2017-05-14 12:00] VITALS: BP 133/67; PULSE 68; PULSE 79; RESP 20; TEMP 97.6; O2SAT 98
[2017-05-14] MEDS ORDERED: EPIN1INJ21 SQ (12:39)
[2017-05-14] MEDS ORDERED: EPIN1INJ21 IV PUSH (12:39)
[2017-05-14] MEDS ORDERED: SOLU250I IV PUSH (12:39)
[2017-05-14] MEDS ORDERED: CEFE2INJ9 IV (12:39)
--- NOTE | 2017-05-14 12:49 | HHI.FF ---
Infusion Therapy Location of Infusion Therapy: Home Health Care IV Infusion Order Patient Information Appointment Date: May 14, 2017 Patient Weight 79.5 kg Diagnosis: Diagnosis Malignant otitis externa Mastoiditis Coded Allergies: No Known Allergies (Unverified , 04/27/17) Administer Medication Cefepime (Ok to deliver the total 6 gm IV in a continuous pump over 24 hours and replace bag every 24 hours.) 2 grams IV q 8 hours Start Treatment: May 14, 2017 Stop Treatment: June 13, 2017 Additional Information Venous access: PICC Line Additional Instructions [x] Peripheral flush and dressing changes per protocol [x] Implanted port and 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 [] May leave port accessed during therapy. [] May leave peripheral site accessed for duration of therapy. [x] If patient has SOB or respiratory distress, check oxygen saturation. If less than 90% or clinical signs of respiratory distress, administer oxygen at 2 L/min. via nasal cannula and notify physician. [x] Anaphylaxis/Reaction orders: * Stop infusion. * Keep IV line open with saline flush. * Notify physician. * Monitor vital signs every 15 minutes until symptoms resolve. * Check Oxygen saturation; Oxygen at 2 L/min. via nasal cannula if less than 90% or clinical signs of respiratory distress. * Administer diphenhydramine (Benadryl) 25 mg IV STAT, (unless patient has received as pre-med). May repeat once, if necessary. * Solu-Cortef 250 mg IVP over 30-60 seconds, use 100 mg vials for each dissolution. * Epinephrine (1mg/1 ml) 0.3 mg subcutaneously or IVP now with any signs of respiratory distress. * Check with physician for new additional pre-med orders if patient is re- challenged or re-treated. [x] May remove PICC line when treatment complete, after confirming with Physician. [x] If the patient is admitted to the hospital, the ED, or transferred via EV[facility] , complete transfer form including medication reconciliation order sheet. Laboratory Tests Weekly Labs: CBC w/diff, CRP, LFT's (Hepatic function test) Additional Information Please draw weekly labs, fax labs to office. Please call him with abnormals, change in clinical condition or problems to: Dr. Juan Pablo Willis Infectious Disease Follow up appt: Patient to schedule follow up appt with Dr. Willis within 1 week post discharge. Follow up with PCP Follow up with other MDs as planned. Counseling: Counseled about medication side effects Counseled about PICC line care and hand hygiene. Indu Saldivar MD May 14, 2017 12:49
--- NOTE | 2017-05-14 12:50 | HHI.IDPN ---
Subjective Subjective Remarks is a 61-year-old Slovak-speaking female with a past medical history of diabetes, hypertension, hyperlipidemia who presents to the emergency department for evaluation of an ear infection. The patient initially started having right ear pain 3 months ago. She was referred by her primary care physician to an ENT physician who then referred her to infectious disease specialist. She had a PICC line placed approximately 9 days ago and was reportedly prescribed cefepime 2 g twice a day for 3 weeks which was to be ordered for home administration through the PICC line. She was treated first at [facility] and then sent to [facility]. She reports having a small surgical procedure on the right ear on 04/19/17. Unfortunately, the patient has not received any medication at her home secondary to insurance issues. Infectious disease has been consulted for evaluation and medical management of malignant otitis externa. Overnight notes reviewed. Slovak-speaking. Denies any pain in ear today no fever no rash Asking when she can go home. Antibiotics Cefepime 2 g every 8 hours Lines Right upper arm PICC line, placed approximately 05/01/17 Past Medical History HTN HLD DM Allergies: Coded Allergies: No Known Allergies (Unverified , 04/27/17) Objective . Vital Signs Date Time Temp Pulse Resp B/P (MAP) Pulse Ox O2 Delivery O2 Flow Rate FiO2 05/14/17 12:00 97.6 68 20 133/67 (89) 98 05/14/17 08:00 97.9 70 20 131/65 (87) 95 05/14/17 07:00 Room Air 05/14/17 04:00 59 05/14/17 04:00 Room Air 05/14/17 04:00 97.7 67 16 124/68 (86) 97 05/14/17 00:00 Room Air 05/14/17 00:00 54 05/14/17 00:00 98.0 60 17 125/65 (85) 96 05/13/17 20:00 Room Air 05/13/17 20:00 97.8 69 16 128/64 (85) 95 05/13/17 20:00 66 05/13/17 16:00 97.4 69 20 160/92 (114) 99 05/13/17 16:00 72 Imaging Last Impressions Temporal Bone CT 05/10/17 0000 Signed Impressions: Service Date/Time: Thursday, May 11, 2017 10:29 - CONCLUSION: 1. Soft tissue mass extending from the perirectal region into the right EAC with out enlargement of the canal diameter and without sclerosis. The soft tissue extends and is limited by the tympanic membrane. No middle ear abnormalities seen. 2. Mild right inferior mastoid disease with multiple opacified air cells , but no significant septal sclerosis. Meng Mcclelland MD Head CT 05/10/17 0000 Signed Impressions: Service Date/Time: May 12:53 - CONCLUSION: 1. No acute findings in the brain. No abnormal areas of intracranial enhancement. 2. Greater than 3 cm enhancing soft tissue about the right external ear extending into the external acoustic canal and possibly extending into the right TMJ. No evidence of bony destruction of the wall of the external acoustic canal. Meng Mcclelland MD Lower Extremity Ultrasound 05/08/170 Signed Impressions: Service Date/Time: Monday, May 08, 2017 21:47 - CONCLUSION: Normal examination. Fabian Rosario MD Physical Exam GENERAL: This is a well-nourished, well-developed Slovak speaking female patient, in no apparent distress. SKIN: Warm and dry. HEENT: Normocephalic. Pupils equal round and reactive. Nose without bleeding. Airway patent. Right ear edema, erythema noted, yellowish draining minimal amount - improved. Unable to assess TM secondary to edema. No thrush noted. NECK: Trachea midline. CARDIOVASCULAR: Regular rate and rhythm without murmurs, gallops, or rubs. RESPIRATORY: Clear to auscultation. Breath sounds equal bilaterally. No wheezes , rales, or rhonchi. GASTROINTESTINAL: Abdomen soft, non-tender, nondistended. Bowel Sounds normoactive x4. MUSCULOSKELETAL: Extremities without clubbing, cyanosis, or edema. NEUROLOGICAL: Awake and alert. Slovak-speaking. Oriented to time, place, person. Cranial nerves intact. Moves all extremities. Normal speech. LINES: Right upper arm PICC line, no infection noted Assessment & Plan Remarks Possible sepsis, secondary to otitis media Malignant otitis externa right ear, concern for underlying malignancy Mastoiditis DM HTN Recommendations: CT of the temporal bone with left temporal bone intact and inner ears structures are normal Continue on IV Cefepime. Post hospital infusion orders in chart for Cefepime on a pump. sgae nice health rep. sage CM Will sign off please call back if any change in clinical condition or questions. Indu Saldivar MD May 14, 2017 12:50
[2017-05-14] MEDS ORDERED: LEVEMIR SQ (15:47)
[2017-05-14] MEDS ORDERED: NOVOLOGSS SQ (15:47)
[2017-05-14] MEDS ORDERED: NOVOLOGP2 SQ (15:47)
[2017-05-14 16:00] VITALS: BP 142/72; PULSE 69; RESP 20; TEMP 97.5; O2SAT 97
--- NOTE | 2017-05-15 17:14 | HHI.DS ---
Discharge Summary Admission Date May 08, 2017 at 23:10 Discharge Date: May 14, 2017 Admitting Diagnosis Malignant otitis externa, leukocytosis (1) Malignant otitis externa ICD Code: H60.20 - Malignant otitis externa, unspecified ear (2) Diabetes mellitus ICD Code: E11.9 - Type 2 diabetes mellitus without complications Procedures NONE Brief History - From Admission 61-year-old Mongolian-speaking female with a past medical history of diabetes, hypertension, hyperlipidemia who presents to the emergency department for evaluation of an ear infection. The patient initially started having right ear pain 2 months ago. She was referred by her primary care physician to an ENT physician who then referred her to infectious disease. She had a PICC line placed approximately 9 days ago and was reportedly prescribed cefepime 2 g twice a day for 3 weeks which was to be ordered for home administration through the PICC line. Unfortunately the patient has not received any medication at her home secondary to insurance issues. The patient denies any fever/chills. No nausea/vomiting/abdominal pain. No chest pain or shortness of breath. She has bilateral lower extremity edema for the past few days which is somewhat more painful when walking. She has no history of congestive heart failure. PE at Discharge GENERAL: This is a well-nourished, well-developed patient, in no apparent distress. Non-Malian speaker SKIN: No rashes, warm and dry HEAD: Atraumatic. Normocephalic. EYES: Pupils equal round and reactive. Extraocular motions intact. No scleral icterus. ENT: Right years and periauricular area less erythematous tender to touch with some crusted pus NECK: Trachea midline. Supple CARDIOVASCULAR: Regular rate and rhythm without murmurs, gallops, or rubs. RESPIRATORY: Fair air entry bilaterally. No wheezes, rales, or rhonchi. GASTROINTESTINAL: Abdomen soft, non-tender, nondistended. Positive bowel sounds MUSCULOSKELETAL: Extremities without clubbing, cyanosis, or edema. Pedal pulses appreciated NEUROLOGICAL: Awake and alert. Moves all extremity. Normal speech.no focal neurological deficit Hospital Course 61 years old diabetic female admitted with malignant otitis externa with leukocytosis tachycardia patient placed on cefepime and infectious disease consulted as well as ENT, temporal bone CT ordered, patient started to improve on diabetes antibiotic, eventually ENT recommended continuing IV antibiotic per infectious disease recommendation no surgical intervention, ID recommended outpatient 4 weeks of cefepime. During her hospital course patient has been monitored closely for diabetes, she was placed on adjusted insulin regimen and she had diabetic education. [id number] encounter performed with the patient on discharge day, as well as physical exam, summary of hospitalization course and postdischarge plan has been D/W the patient. D/W nurse D/W case finishing machine adjuster. Discharge medications reviewed and printed and signed, post discharge follow up visit with PCP and other specialist as well as Brief hospital course and discharge summary has been placed. Pt Condition on Discharge: Fair Discharge Disposition: Discharge Home Discharge Time: > 30 minutes Discharge Instructions DIET: Follow Instructions for: Heart Healthy Diet, Diabetic Diet Activities you can perform: Weight Bearing as Romain Anthony MD May 15, 2017 17:14
== END 2017-05-14 16:59 | disposition home or self-care (01) | DRG 156 ==
LOC: NEPC 18:31 → NEDA 23:10 → HCIN 05-09 01:20 → HCIS 05-09 03:47 → N04A 05-09 17:24
PROVIDERS: ADMIT Hospitalist; ATTEND Hospitalist
DX: H60.21 Malignant otitis externa, right ear (principal); E11.65 Type 2 diabetes mellitus with hyperglycemia; I10 Essential (primary) hypertension; H70.91 Unspecified mastoiditis, right ear; E78.5 Hyperlipidemia, unspecified; R60.0 Localized edema; B96.5 Pseudomonas (aeruginosa) (mallei) (pseudomallei) as the cause of diseases classified elsewhere; M19.90 Unspecified osteoarthritis, unspecified site; R42 Dizziness and giddiness; R00.0 Tachycardia, unspecified; Z79.4 Long term (current) use of insulin
CPT/HCPCS: 70470; 70480; 80048; 80053; 82948; 83036; 83605; 83735; 84100; 84439; 84443; 85025; 85610; 85730; 86140; 87070; 87077; 87186; 87205; 93970; 96374; J0692; J1644; J1815; J2405; Q9967